=== PATIENT | female | born 1955 | race Caucasian/White ===

== ENCOUNTER 2020-07-18 16:27 | Outpatient (CLI) | payer OTHER, SELFPAY ==
--- NOTE | ~2020-07-18 | MM_ITS ---
EXAMINATION: MM screening [facility] HISTORY: Screening TECHNIQUE: Craniocaudal and mediolateral oblique 3-D tomosynthesis images were obtained and synthetic 2-D images were generated. CAD analysis was submitted and interpreted. COMPARISON: Comparison to multiple prior studies sequentially, with oldest reviewed study dated 08/16. BREAST PARENCHYMAL COMPOSITION: There are scattered areas of fibroglandular density. FINDINGS: There is no evidence of suspicious mass, calcification, or architectural distortion to sugg est malignancy in either breast. There has been no suspicious interval change. IMPRESSION: 1. No mammographic evidence of malignancy. 2. Recommend routine screening mammography in one year. BI-RADS Category 1: Negative Reviewed, dictated and finalized at location A.
== END 2020-07-18 16:28 | disposition home or self-care (01) ==
PROVIDERS: PCP Nurse Practitioner Adult Health; Visit Provider Nurse Practitioner Obstetrics & Gynecology
DX: Z12.31 Encounter for screening mammogram for malignant neoplasm of breast (principal)
CPT/HCPCS: 77063; 77067

== ENCOUNTER → 2021-12-06 13:54 | Outpatient (CLI) | payer MEDICARE, SELFPAY ==
--- NOTE | ~2021-12-06 | MM_ITS ---
EXAMINATION: MM screening [facility] HISTORY: Screening mammogram TECHNIQUE: Craniocaudal and mediolateral oblique 3-D tomosynthesis images were obtained and synthetic 2-D images were generated. CAD analysis was submitted and interpreted. COMPARISON: 07/18/2020, 01/25/2019, 07/30/2017 BREAST PARENCHYMAL COMPOSITION: The breasts are heterogeneously dense, which may obscure small masses . FINDINGS: There is no suspicious mass, calcification, or architectural distortion to suggest malignan cy in either breast. There has been no suspicious interval change. IMPRESSION: 1. No mammographic evidence of malignancy. 2. Recommend routine screening mammography in one year. BI-RADS Category 0: Incomplete: Needs additional imaging evaluation. Reviewed, dictated and finalized at location A.
--- NOTE | ~2021-12-06 | DEXA_ITS ---
Bone Density Report Name: DAPHNE DEAN Age: 66 Sex: Female Ethnicity: White Date of : 1955 Indication: postmenopausal; screening for osteoporosis; Referring Provider: BRYN, JOSELINE Study: Bone densitometry was performed. Exam Date: December 06, 2021 Accession number: [id number] Bone Density: Region BMD T-score Z-score Classification AP Spine (L1-L4) 0.888 -1.4 0.4 Osteopenia Femoral Neck (Left) 0.614 -2.1 -0.6 Osteopenia Total Hip (Left) 0.757 -1.5 -0.3 Osteopenia Femoral Neck (Right) 0.602 -2.2 -0.7 Osteopenia Total Hip (Right) 0.726 -1.8 -0.5 Osteopenia Total Hip Mean 0.742 -1.7 -0.4 Osteopenia World Health Organization criteria for BMD impression classify patients as: Normal (T-score at or above -1.0), Osteopenia (T-score between -1.0 and -2.5), or Osteoporosis (T-score at or below -2.5). 10-year Fracture Risk(1): Major Osteoporotic Fracture 11% Hip Fracture 1.9% Reported Risk Factors: [place] (), Neck BMD=0.602, BMI=23.6 (1) FRAX(R) Version 3.08. Fracture probability calculated for an untreated patient. Fracture probability may be lower if the patient has received treatment. Previous Exams: Region Exam Age BMD T-score BMD Change BMD Change Date g/cm2 vs Baseline vs Previous AP Spine(L1-L4) 12/06/2021 66 0.888 -1.4 -0.032* -0.048* 06/20/2010 55 0.936 -1.0 0.016 0.016 03/16/2008 52 0.920 -1.2 Total Hip(Left) 12/06/2021 66 0.757 -1.5 -0.089* -0.096* 06/20/2010 55 0.853 -0.7 0.007 0.007 03/16/2008 52 0.846 -0.8 Total Hip(Right) 12/06/2021 66 0.726 -1.8 -0.138* -0.107* 06/20/2010 55 0.833 -0.9 -0.031* -0.031* 03/16/2008 52 0.864 -0.6 *Denotes significance at 95% confidence level, LSC for AP Spine = 0.022 g/cm2, LSC for Total Hip = 0.027 g/cm2 Clinical Information Provided by Patient: Has used the following medications: Vitamin D, Calcium, MTV Patient maximum height was 63.0 Menopause Age: 47 No regular weight bearing exercise Does not regularly consume dairy products Drinks caffeinated beverages Onset of menses at age 14 Number of children 2 Impression: The patient has low bone mass, based on the Right Femoral Neck T-score. The patient has an estimated ten-year risk of hip fracture of 1.9% and an estimated ten-year risk of major fracture of 11%, based on the WHO FRAX alg
== END ==
PROVIDERS: PCP Nurse Practitioner Adult Health; Visit Provider Nurse Practitioner Adult Health
DX: Z12.31 Encounter for screening mammogram for malignant neoplasm of breast (principal); Z78.0 Asymptomatic menopausal state; M85.88 Other specified disorders of bone density and structure, other site; M85.851 Other specified disorders of bone density and structure, right thigh; M85.852 Other specified disorders of bone density and structure, left thigh
CPT/HCPCS: 77063; 77067; 77080

== ENCOUNTER 2021-12-11 11:45 | Emergency (ER) | payer MEDICARE, SELFPAY ==
[2021-12-11] VITALS (9 sets, daily range): BP systolic 122–150; BP diastolic 73–95; PULSE 78–100; RESP 14–20; TEMP 36.9; O2SAT 97–100
--- NOTE | ~2021-12-11 | XR_ITS ---
EXAMINATION: XR chest 2V DATE: 12/11/2021 12:19 INDICATION: Chest pain and tachycardia TECHNIQUE: PA and lateral views of the chest are obtained. COMPARISON: 06/29/2013 FINDINGS: The lungs are free of acute opacities. No pleural effusion or pneumothorax. The cardiomedia stinal silhouette is normal. There is mild thoracic spondylosis. IMPRESSION: 1. No acute cardiopulmonary abnormality. Reviewed, dictated and finalized at location B.
--- NOTE | 2021-12-11 11:47 | ECG_ITS ---
Measurements Intervals [place] Rate: 90 P: 82 CA: 156 QRS: 75 QRSD: 105 T: 96 QT: 385 QTc: 472 Interpretive Statements SINUS RHYTHM DELAYED PRECORDIAL R/S TRANSITION LOW QRS VOLTAGE- DIFFUSE LEADS BORDERLINE ST-T WAVE ABNORMALITY- HIGH LATERAL LEADS BORDERLINE ECG NO PREVIOUS ECG AVAILABLE FOR COMPARISON Electronically Signed On 12-11-2021 12:34:42 CDT by Tal Alicea D.O.
[2021-12-11 12:14] LABS: Basophils Absolute Auto 0.1 K/mm3 (0.0-0.1); Basophils Percent Auto 1.1 % (0.2-1.2); Eosinophils Percent Auto 0.5 % (0-4.4); Hematocrit 44.1 % (37.0-47.0); Immature Granulocyte Absolute 0.02 K/mm3 (0.00-0.031); Immature Granulocyte Percent A 0.3 % (0-0.5); Lymphocytes Absolute Auto 1.55 K/mm3 (0.9-3.2); Lymphocytes Percent Auto 23.3 % (18.3-44.2); Mean Corpuscular HGB Conc 31.7 g/dl (32-36); Mean Corpuscular Hemoglobin 30.5 pg (26-34); Mean Corpuscular Volume 96.1 fl (80-100); Mean Platelet Volume 9.1 fl (7.4-10.4); Monocytes Absolute Auto 0.5 K/mm3 (0.1-0.6); Monocytes Percent Auto 6.9 % (2.6-8.5); Neutrophils Absolute Auto 4.5 K/mm3 (1.3-6.7); Neutrophils Percent Auto 67.9 % (45.5-73.1); Platelet Count Result 511 k/mm3 (150-375); Red Blood Count 4.59 M/mm3 (4.2-5.4); Red Cell Distribution Width 13.2 % (11.5-14.5); White Blood Count 6.7 K/mm3 (4.5-10.0)
[2021-12-11 12:26] LABS: Alanine Aminotransferase 20 U/L (6-35); Albumin Level 4.8 g/dL (3.5-5.1); Alkaline Phosphatase 77 U/L (38-126); Anion Gap 17 mmol/L (8-16); Aspartate Amino Transferase 35 U/L (14-36); Bilirubin,Total 0.5 mg/dL (0.2-1.3); Blood Urea Nitrogen 11 mg/dL (7-17); Calcium 9.9 mg/dL (8.4-10.2); Carbon Dioxide 27 mmol/L (22-30); Chloride 97 mmol/L (98-107); Estimated CRCL calculation 57 ml/min; Estimated Glomerular Filt Rate > 60; Glucose 102 mg/dL (65-110); Lipase 136 U/L (23-300); Potassium 4.2 mmol/L (3.4-5.0); Sodium 141 mmol/L (137-145)
[2021-12-11 12:28] LABS: Partial Thromboplastin Time 25.5 SECONDS (22.3-36.8); Prothrombin Time 12.5 Seconds (11.1-14.7)
[2021-12-11 12:36] LABS: Troponin I < 0.012 ng/mL (0.000-0.034)
--- NOTE | 2021-12-11 14:25 | ED.CHESTPAIN ---
HPI - Chest Pain General Chief Complaint: Chest Pain Stated Complaint: chest pain Time Seen by Provider: 12/11/21 14:07 Source: patient Mode of arrival: ambulatory Limitations: no limitations History of Present Illness HPI narrative: 66 years old white female presented to the ED with intermittent fluttering retrosternal and in the throat started few days ago, was seen by her family physician office at that time, had EKG and chest x-ray and was told that her chest x-ray showing that she have emphysema, over the last 4 days patient been feeling pain in her lungs and very anxious unable to sleep, shaking, jittery, and feeling sick. 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 Patient does not take medicine at home, healthy otherwise, does not smoke or drink or uses drugs, no family history of coronary artery disease. Related Data Home Medications Medication Instructions Recorded Confirmed spironolactone 100 mg tablet 100 mg PO DAILY 02/13/21 Allergies Allergy/AdvReac Type Severity Reaction Status Date / Time Penicillins Allergy Unknown unknown Verified 02/13/21 14:22 PROCHLORPERAZINE EDISYLATE Allergy Unknown unknown Uncoded 02/13/21 14:22 PROCHLORPERAZINE MALEATE Allergy Unknown Unknown Uncoded 02/13/21 14:22 Review of Systems Review of Systems: All systems reviewed & are unremarkable except as noted in HPI and below PMFSH Family History Family History Mother Hypertension Heart disease Thyroid disorder Grandparent Diabetes mellitus Social History Social History Smoking status: Never smoker Alcohol intake: never Substance use: never Exam Narrative: General appearance: Well-developed, well-nourished, looks anxious Skin: Normal color Head: Normocephalic, nontraumatic Eyes: Clear conjunctiva ENT: Oropharynx normal, ears normal, nose normal Neck: Supple, nontender Chest and respiratory: Airway patent, no respiratory distress, no accessory muscle use Heart: Regular rate/rhythm Abdomen: Soft, nontender, no organomegaly, quiet bowel sounds Vascular: Normal peripheral pulses, normal capillary refill. Musculoskeletal: Normal range of motion, nontender back Neurologic: Alert and oriented ?3, [employer] is normal as tested, no gross motor deficit Course Course Emergency Course: Stress, and anxiety are my concern. Patient is already have history of anxiety and distress because of her and because of her business, and was told by her family physician office that her chest x-ray showing emphysema which make her more anxious and more stressed. I do show her the report of the chest x-ray today and was very happy about it and she told me that I met her day. Because did not show any emphysema. Work-up today did not show any significant finding to explain her symptoms. My plan to discharge patient home on clonazepam for the next 7 days and to follow-up with her family physician as needed. Vital Signs Vital signs: Vital Signs Temperature 36.9 C 12/11/21 11:49 Pulse Rate 100 12/11/21 11:49 Respiratory Rate 18 12/11/21 11:49 Blood Pressure 150/95 H 12/11/21 11:49 Pulse Oximetry 100 12/11/21 11:49 Oxygen Delivery Room Air 12/11/21 11:49 Temperature 36.9 C 12/11/21 11:49 Pulse Rate 89 12/11/21 14:11 Respiratory Rate 16 12/11/21 14:11 Blood Pressure 132/79 12/11/21 14:11 Pulse Oximetry 100 12/11/21 14:11 Oxygen Delivery Room Air 12/11/21 14:11
[2021-12-11 15:20] LABS: Troponin I < 0.012 ng/mL (0.000-0.034)
== END 2021-12-11 16:45 | disposition home or self-care (01) ==
PROVIDERS: Emergency Medicine; Emergency Provider Emergency Medicine; PCP Nurse Practitioner Adult Health
DX: R00.2 Palpitations (principal); R07.89 Other chest pain; F41.9 Anxiety disorder, unspecified
CPT/HCPCS: 36415; 71046; 80053; 83690; 84443; 84484; 85025; 85610; 85730; 93005; 99284

== ENCOUNTER 2022-01-09 00:08 | Day surgery (SDC) | payer MEDICARE, SELFPAY ==
[2021-12-24 13:43] VITALS: BMI 23.0
--- NOTE | 2022-01-08 17:45 | PM.HPGS ---
History of Present Illness History of Present Illness Consent: Risks, benefits, and alternatives have been discussed and questions answered. Patient agrees to proceed with procedure. Chief complaint: neoplasm screening Narrative: Amanda Le is a 66 year old female referred for colon cancer screening. She had a polyp removed 6 years ago Review of Systems Review of Systems: All systems reviewed & are unremarkable except as noted in HPI and below PMFSH Past Medical History Medical History (Updated 01/09/22 @ 09:26 by Angus Clinton DO) Anxiety Family History Family History Mother Hypertension Heart disease Thyroid disorder Grandparent Diabetes mellitus Social History Social History Smoking status: Never smoker Alcohol intake: never Substance use: never Substance use type: does not use Living arrangements: with family Additional living arrangements comments: spouse is still recovering from Covid in September 2021, is in rehab facility Spiritual care concerns: No Meds Home Medications and Allergies Home Medications Medication Instructions Recorded Confirmed Type spironolactone 100 mg tablet 100 mg PO DAILY 02/13/21 12/24/21 History clonazepam 0.25 mg disintegrating 0.25 mg PO BID #14 tabs 12/11/21 12/24/21 Rx tablet aspirin 81 mg capsule 81 mg PO DAILY 12/24/21 12/24/21 History esomeprazole magnesium 20 mg 20 mg PO DAILY 12/24/21 12/24/21 History capsule,delayed release (Nexium) minocycline 100 mg capsule 100 mg PO DAILY 12/24/21 12/24/21 History Allergies Allergy/AdvReac Type Severity Reaction Status Date / Time Penicillins Allergy Unknown unknown Verified 01/09/22 09:23 PROCHLORPERAZINE EDISYLATE Allergy Unknown unknown Uncoded 01/09/22 09:23 PROCHLORPERAZINE MALEATE Allergy Unknown Unknown Uncoded 01/09/22 09:23 Exam Const: General: alert Orientation/consciousness: patient oriented x3 Resp: Auscultation: clear to auscultation bilaterally Cardio: Rhythm: regular rhythm GI: GI Palp: Yes Soft to palpation and No Tenderness to palpation present (GI) Neuro: General: patient oriented x3 Assessment and Plan Assessment and plan (1) Colon cancer screening: Code(s): Z12.11 - Encounter for screening for malignant neoplasm of colon Status: Acute Assessment and Plan: Colonoscopy with possible biopsy or polypectomy or cautery or injection of substances.
--- NOTE | 2022-01-09 09:21 | WPDANESEPPF ---
Anes - Initial Pre Proc Eval Procedure: Operation Date: 01/09/22 10:45 Proposed Procedures p Screening Colonoscopy - Palomo Woods MD Date/Time: 01/09/22 09:21 Surgeon: Palomo Woods MD Pre Op Diagnosis: neoplasm screening Patient Data Age: 66 Gender: F Height: 1.6 m Weight: 59 kg Allergies Allergy/AdvReac Type Severity Reaction Status Date / Time Penicillins Allergy Unknown unknown Verified 01/09/22 09:23 PROCHLORPERAZINE EDISYLATE Allergy Unknown unknown Uncoded 01/09/22 09:23 PROCHLORPERAZINE MALEATE Allergy Unknown Unknown Uncoded 01/09/22 09:23 Home Medications Medication Instructions Recorded Confirmed Type spironolactone 100 mg tablet 100 mg PO DAILY 02/13/21 12/24/21 History clonazepam 0.25 mg disintegrating 0.25 mg PO BID #14 tabs 12/11/21 12/24/21 Rx tablet aspirin 81 mg capsule 81 mg PO DAILY 12/24/21 12/24/21 History esomeprazole magnesium 20 mg 20 mg PO DAILY 12/24/21 12/24/21 History capsule,delayed release (Nexium) minocycline 100 mg capsule 100 mg PO DAILY 12/24/21 12/24/21 History Patient hx anesthesia problems: none Family hx anesthesia problems: none Results Review: All pre-operative results and documents have been reviewed as part of the pre-operative evaluation. [facility] Past Medical History Medical History (Updated 01/09/22 @ 09:26 by Angus Clinton DO) Anxiety Family History Family History Mother Hypertension Heart disease Thyroid disorder Grandparent Diabetes mellitus Social History Social History Smoking status: Never smoker Alcohol intake: never Substance use: never Substance use type: does not use Living arrangements: with family Additional living arrangements comments: spouse is still recovering from Covid in September 2021, is in rehab facility Spiritual care concerns: No Anes - Eval Final PreProcedure Day of Procedure 01/09/22 09:21 Patient weight: normal Heart: regular rate and rhythm Lungs: clear to auscultation and normal air movement Airway: Mallampati scale class II Neurological: alert and oriented Last oral intake: >/= 8 hours ASA classification: II Emergent: no Anesthetic plan: proceed Anesthesia type and monitoring: general GIVS and standard monitoring Results Review: All pre-operative results and documents have been reviewed as part of the pre-operative evaluation. Informed Consent: The patient's anesthetic plan and its attendant risks and benefits were discussed with the patient/family/POA. Questions were solicited and answers provided to the satisfaction of the patient/family/POA.
[2022-01-09] MEDS: LACTATED RINGERS 1,000 ML 150 ML IV CONT (09:36)
[2022-01-09] MEDS: SIMETHICONE ORAL SUSPENSION 20 MG/0.3 ML 30 ML BOTTLE 0.6 ML IRRIGATION (10:31)
[2022-01-09 10:40] VITALS: BP 117/61; PULSE 72; RESP 17; O2SAT 100
[2022-01-09 10:50] VITALS: BP 116/70; PULSE 69; RESP 19; O2SAT 100
[2022-01-09 11:00] VITALS: BP 107/68; PULSE 72; RESP 16; O2SAT 100
== END 2022-01-09 11:19 | disposition home or self-care (01) ==
PROVIDERS: PCP Nurse Practitioner Adult Health; Visit Provider Internal Medicine Gastroenterology
PROC: 0DJD8ZZ Inspection of Lower Intestinal Tract, Via Natural or Artificial Opening Endoscopic (ICD-10-PCS; CPT 45378; principal; 2022-01-09 10:45)
DX: Z12.11 Encounter for screening for malignant neoplasm of colon (principal); K62.1 Rectal polyp; K57.30 Diverticulosis of large intestine without perforation or abscess without bleeding; Z79.82 Long term (current) use of aspirin; F41.9 Anxiety disorder, unspecified
CPT/HCPCS: 45380; 88305; J2704; J7120

== ENCOUNTER 2022-02-05 07:19 | Outpatient (CLI) | payer MEDICARE, SELFPAY ==
--- NOTE | ~2022-02-05 | NM_ITS ---
EXAMINATION: NM hepatobiliary wo pharm DATE: 02/05/2022 09:42 INDICATION: Epigastric abdominal pain. Atypical chest pain. COMPARISON: CT abdomen and pelvis 02/05/2022 TECHNIQUE: 5.1 mCi Tc-99m mebrofenin (Choletec) was administered intravenously. Scintigraphic images of the abdomen were obtained for one hour. Then, the patient drank 8 oz Ensure, and imaging was cont inued for 60 minutes. FINDINGS: There is normal clearance of radiotracer from the blood pool. There is homogeneous tracer u ptake by the liver. Activity progresses to the bowel and gallbladder. Gallbladder ejection fraction (GBEF) was 65%. Note that with this technique, normal GBEF >= 33%. IMPRESSION: 1. Normal hepatobiliary scintigraphy. Reviewed, dictated and finalized at location A.
--- NOTE | ~2022-02-05 | CT_ITS ---
EXAMINATION: CT abdomen pelvis w con DATE: 02/05/2022 09:49 INDICATION: Right lower quadrant tenderness, possible lump. Epigastric abdominal pain. Right and left -sided abdominal pain today. TECHNIQUE: Computed tomography (CT) of the abdomen and pelvis was performed with 100 CC Omnipaque 350 intravenous contrast. Automated exposure control and iterative reconstruction technique were employe d. Exam dose: 288.22 mGy-cm total exam DLP. COMPARISON: June 29, 2013 gallbladder ultrasound, reported normal 02/05/2022 radionuclide hepatobiliary scan FINDINGS: The bases are clear. Heart size is within normal limits. No pericardial or pleural effusion . The liver, gallbladder, bile ducts, spleen, pancreas, pancreatic duct, and adrenal glands and kidneys appear normal. Normal caliber of the abdominal aorta. No intraperitoneal or retroperitoneal or pelvic mass lesion or adenopathy or ascites. Retroverted uterus. The urinary bladder is unremarkable. No adnexal mass lesion. Diverticulosis of the left colon; no CT evidence of diverticulitis. There is a prominent amount of fe fay material particularly in the transverse and right colon. No bowel obstruction, bowel wall thicken ing, pneumatosis or intraperitoneal free air. Moderate to moderately severe degenerative disc disease at L4-5 and L5-S1. No suspicious osteolytic o r osteoblastic lesions are noted. IMPRESSION: Diverticulosis of the colon; no evidence of diverticulitis Retroverted uterus Reviewed, dictated and finalized at Location A. Reviewed, dictated and finalized at location A.
[2022-02-05 08:45] LABS: Estimated Glomerular Filt Rate > 60
== END 2022-02-05 07:20 | disposition home or self-care (01) ==
PROVIDERS: PCP Nurse Practitioner Adult Health; Visit Provider Nurse Practitioner
DX: R10.813 Right lower quadrant abdominal tenderness (principal); R07.89 Other chest pain; R10.13 Epigastric pain; K57.90 Diverticulosis of intestine, part unspecified, without perforation or abscess without bleeding; N85.4 Malposition of uterus
CPT/HCPCS: 74177; 78226; A9537; Q9967

== ENCOUNTER 2022-02-08 00:49 | Day surgery (SDC) | payer MEDICARE, SELFPAY ==
[2022-01-30 14:24] VITALS: BMI 23.1
--- NOTE | 2022-02-08 11:24 | P.HP_ITS ---
History of Present Illness History of Present Illness Consent: Risks, benefits, and alternatives have been discussed and questions answered. Patient agrees to proceed with procedure. Chief complaint: epigastric pain Narrative: Amanda Le is a 66 year old female Who ?over the last 6 months began having epigastric abdominal discomfort that was on and off but she described as a ?ache?.? She took Nexium with somewhat relief.? This has continued and has be en progressively been worsening with now radiation into her bilateral lower ribs.? This is not worsened with eating or improved with bowel habits.? She had reported to her PCP that she had some chest discomfort with epigastric pain with radiation into her chest along with? ?fluttering in her chest that resolved spontaneously. She was seen in the emergency room and cardiac test were negative. Her symptoms always worsened when she is under stress.? Review of Systems Review of Systems: All systems reviewed & are unremarkable except as noted in HPI and below PMFSH Past Medical History Medical History Anxiety Atypical chest pain Epigastric abdominal pain RLQ abdominal tenderness Family History Family History Mother Hypertension Heart disease Thyroid disorder Grandparent Diabetes mellitus Social History Social History Smoking status: Never smoker Alcohol intake: current Alcohol use details: maybe once a week socially Substance use: never Substance use type: does not use Living arrangements: alone Additional living arrangements comments: spouse is still recovering from Covid in September 2021, is in rehab facility Spiritual care concerns: No Meds Home Medications and Allergies Home Medications Medication Instructions Recorded Confirmed Type spironolactone 100 mg tablet 100 mg PO DAILY 02/13/21 01/30/22 History aspirin 81 mg capsule 81 mg PO DAILY 12/24/21 01/30/22 History minocycline 100 mg capsule 100 mg PO DAILY 12/24/21 01/30/22 History esomeprazole magnesium 40 mg 40 mg PO BID #60 caps 02/07/22 02/08/22 Rx capsule,delayed release (Nexium) Allergies Allergy/AdvReac Type Severity Reaction Status Date / Time Penicillins Allergy Intermediate Hives Verified 02/08/22 11:43 PROCHLORPERAZINE EDISYLATE Allergy Intermediate Muscle Uncoded 02/08/22 11:43 Spasms PROCHLORPERAZINE MALEATE Allergy Intermediate Muscle Uncoded 02/08/22 11:43 Spasms Exam Const: General: alert Orientation/consciousness: patient oriented x3 Resp: Auscultation: clear to auscultation bilaterally Cardio: Rhythm: regular rhythm GI: GI Palp: Yes Soft to palpation and No Tenderness to palpation present (GI) Neuro: General: patient oriented x3 Assessment and Plan Assessment and plan (1) Epigastric abdominal pain: Code(s): R10.13 - Epigastric pain Status: Acute Assessment and Plan: EGD with possible biopsy or dilatation or cautery.
[2022-02-08 11:47] VITALS: BP 124/78; PULSE 89; RESP 18; TEMP 36.6; O2SAT 100
[2022-02-08] MEDS: LACTATED RINGERS 1,000 ML 150 ML IV CONT (11:58)
--- NOTE | 2022-02-08 12:05 | P.PNAN_ITS ---
Anes - Initial Pre Proc Eval Procedure: Operation Date: 02/08/22 13:00 Proposed Procedures p Esophagogastroduodenoscopy EGD - Palomo Woods MD Date/Time: 02/08/22 12:05 Surgeon: Palomo Woods MD Pre Op Diagnosis: epigastric pain Patient Data Age: 66 Gender: F Height: 1.6 m Weight: 59 kg Last Vital Signs Temp 97.9 F 02/08/22 11:47 Pulse 89 02/08/22 11:47 Resp 18 02/08/22 11:47 BP 124/78 02/08/22 11:47 Pulse Ox 100 02/08/22 11:47 O2 Del Method Room Air 02/08/22 11:47 Allergies Allergy/AdvReac Type Severity Reaction Status Date / Time Penicillins Allergy Intermediate Hives Verified 02/08/22 11:43 PROCHLORPERAZINE EDISYLATE Allergy Intermediate Muscle Uncoded 02/08/22 11:43 Spasms PROCHLORPERAZINE MALEATE Allergy Intermediate Muscle Uncoded 02/08/22 11:43 Spasms Home Medications Medication Instructions Recorded Confirmed Type spironolactone 100 mg tablet 100 mg PO DAILY 02/13/21 01/30/22 History aspirin 81 mg capsule 81 mg PO DAILY 12/24/21 01/30/22 History minocycline 100 mg capsule 100 mg PO DAILY 12/24/21 01/30/22 History esomeprazole magnesium 40 mg 40 mg PO BID #60 caps 02/07/22 02/08/22 Rx capsule,delayed release (Nexium) Patient hx anesthesia problems: none Family hx anesthesia problems: none Results Review: All pre-operative results and documents have been reviewed as part of the pre- operative evaluation. [facility] Past Medical History Medical History (Updated 01/17/22 @ 10:09 by Marta Terrazas APRN) Anxiety Atypical chest pain Epigastric abdominal pain RLQ abdominal tenderness Family History Family History Mother Hypertension Heart disease Thyroid disorder Grandparent Diabetes mellitus Social History Social History Smoking status: Never smoker Alcohol intake: current Alcohol use details: maybe once a week socially Substance use: never Substance use type: does not use Living arrangements: alone Additional living arrangements comments: spouse is still recovering from Covid in September 2021, is in rehab facility Spiritual care concerns: No Anes - Eval Final PreProcedure Day of Procedure 02/08/22 12:05 Patient weight: normal Heart: regular rate and rhythm Lungs: clear to auscultation Airway: Mallampati scale class II Neurological: alert and oriented Last oral intake: >/= 8 hours ASA classification: II Emergent: no Anesthetic plan: proceed Anesthesia type and monitoring: general GIVS and standard monitoring Results Review: All pre-operative results and documents have been reviewed as part of the pre-operative evaluation. Informed Consent: The patient's anesthetic plan and its attendant risks and benefits were discussed with the patient/family/POA. Questions were solicited and answers provided to the satisfaction of the patient/family/POA.
[2022-02-08 12:48] VITALS: BP 114/74; PULSE 78; RESP 21; O2SAT 100
[2022-02-08 12:58] VITALS: BP 133/77; PULSE 75; RESP 16; O2SAT 100
[2022-02-08 13:08] VITALS: BP 126/78; PULSE 66; RESP 19; O2SAT 100
== END 2022-02-08 13:12 | disposition home or self-care (01) ==
PROVIDERS: PCP Nurse Practitioner Adult Health; Visit Provider Internal Medicine Gastroenterology
PROC: 0DJ08ZZ Inspection of Upper Intestinal Tract, Via Natural or Artificial Opening Endoscopic (ICD-10-PCS; CPT 43235; principal; 2022-02-08 13:00)
DX: K21.9 Gastro-esophageal reflux disease without esophagitis (principal); Z79.82 Long term (current) use of aspirin
CPT/HCPCS: 43239; 87081; 88305; J2001; J2704; J7120

== ENCOUNTER 2022-07-20 13:55 | Emergency (ER) | payer MEDICARE, SELFPAY ==
--- NOTE | ~2022-07-20 | XR_ITS ---
EXAMINATION: XR foot LT min 3V DATE: 07/20/2022 14:11 INDICATION: Left foot pain TECHNIQUE: Dorsoplantar, lateral, and 2 oblique views of the left foot were obtained. COMPARISON: None. FINDINGS: Bone alignment is normal. There is no fracture. There is mild osteoarthritis of multiple in terphalangeal joints. The soft tissues are unremarkable. There is a posterior plantar calcaneal enthe sophyte. There is a screw in the distal tibia. IMPRESSION: 1. No acute osseous abnormality. Reviewed, dictated and finalized at location A.
[2022-07-20 14:04] VITALS: BP 115/71; PULSE 93; RESP 16; TEMP 37.1; O2SAT 99
--- NOTE | 2022-07-20 14:25 | ED.LOWEXIN ---
HPI - Extremity Injury (Lower) General Chief Complaint: Extremity Injury, Lower Stated Complaint: foot injury Time Seen by Provider: 07/20/22 14:25 Source: patient, RN notes reviewed and old records reviewed Mode of arrival: ambulatory Limitations: no limitations History of Present Illness HPI Narrative: 67 year old female presents to [facility] care with reports that she sprained her left foot 2 weeks ago and then last Friday she dropped a 18Oz can of full drink on the dorsal distal aspect of her left foot. Patient reports that she has some pain to the dorsal distal aspect of her left foot with mild puffiness noted, no redness or acute bruising noted. Patient is able to apply full weight to left foot with steady gait. David has been taking Tylenol for her symptoms. MD complaint: foot injury (left) Onset (ago): day(s) (3 days and 2 weeks ago left lateral ankle sprain) Type of Injury: blunt Severity scale (1-10): 4 Exacerbating factors: weight bearing Treatments prior to arrival: other (tylenol) Related Data Home Medications Medication Instructions Recorded Confirmed spironolactone 100 mg tablet 100 mg PO DAILY 02/13/21 07/20/22 aspirin 81 mg capsule 81 mg PO DAILY 12/24/21 07/20/22 minocycline 100 mg capsule 100 mg PO DAILY 12/24/21 07/20/22 Allergies Allergy/AdvReac Type Severity Reaction Status Date / Time Penicillins Allergy Intermediate Hives Verified 02/08/22 11:43 PROCHLORPERAZINE EDISYLATE Allergy Intermediate Muscle Uncoded 02/08/22 11:43 Spasms PROCHLORPERAZINE MALEATE Allergy Intermediate Muscle Uncoded 02/08/22 11:43 Spasms Review of Systems Review of Systems: CONSTITUTIONAL: Denies fever, chills, or sweats. EYES: Denies visual changes, redness, or discharge. ENT: Denies rhinorrhea, congestion, sore throat, or otalgia. CARDIOVASCULAR: Denies chest pain, palpitations, or edema. RESPIRATORY: Denies cough or dyspnea. GASTROINTESTINAL: Denies abdominal pain, nausea, vomiting, or diarrhea. GENITOURINARY: Denies dysuria or hematuria. SKIN: Denies rash or itching. MUSCULOSKELETAL: Denies back pain, positive for pain to distal dorsal left foot with minimall swelling noted, or myalgia. NEUROLOGIC: Denies headache, numbness, or weakness. PSYCHIATRIC: Denies anxiety or depression. All systems reviewed & are unremarkable except as noted in HPI and below PMFSH Past Medical History Medical History Anxiety Atypical chest pain Epigastric abdominal pain RLQ abdominal tenderness Family History Family History Mother Hypertension Heart disease Thyroid disorder Grandparent Diabetes mellitus Social History Social History Smoking status: Never smoker Alcohol intake: current Alcohol use details: maybe once a week socially Substance use: never Substance use type: does not use Living arrangements: alone Additional living arrangements comments: spouse is still recovering from Covid in September 2021, is in rehab facility Spiritual care concerns: No Comments At time of signature, agree with nursing past medical, surgical, social and family history. There is no relevant family history pertinent to the presenting complaint Exam Narrative: GENERAL: Well-appearing, well-nourished, and in no acute distress. HEAD: Normocephalic, atraumatic. EYES: PERRLA and EOMI. ENT: Nares clear, no rhinorrhea or epistaxis. Mucous membranes moist.TM's normal throat pink with no swelling NECK: Supple.no lymphadenopathy CHEST: Clear to auscultation. No respiratory distress.SAO2 99% on room air HEART: Regular rate and rhythm. No murmur heard. Normal peripheral pulses. ABDOMEN: Soft, nontender, nondistended, normal active bowel sounds. EXTREMITIES: Normal range of motion. No edema.Exception noted to pain to left distal foot with mild puffiness noted to distal jeanmarie
== END 2022-07-20 14:40 | disposition home or self-care (01) ==
PROVIDERS: Emergency Provider Registered Nurse
DX: S90.32XA Contusion of left foot, initial encounter (principal); W20.8XXA Other cause of strike by thrown, projected or falling object, initial encounter; Z79.82 Long term (current) use of aspirin
CPT/HCPCS: 73630; 99213; G0463

== ENCOUNTER 2022-11-14 10:58 | Emergency (ER) | payer MEDICARE, SELFPAY ==
--- NOTE | ~2022-11-14 | CT_ITS ---
EXAMINATION: CT abdomen pelvis wo con DATE: 11/14/2022 12:47 INDICATION: Left flank pain. TECHNIQUE: Computed tomography (CT) of the abdomen and pelvis was performed without intravenous contr ast. Automated exposure control and iterative reconstruction technique were employed. The dose-length product was 191.16 mGy-cm. COMPARISON: CT abdomen and pelvis 02/05/2022 FINDINGS: The visualized portions of the lung bases demonstrate minimal atelectasis. No pleural effus ion. The heart size is normal. No pericardial effusion. The liver, gallbladder, spleen, pancreas, adr enal glands, and kidneys are normal. There is no urolithiasis. There is diverticulosis of the colon w ithout evidence of diverticulitis. The appendix is normal. There are no pathologically enlarged lymph nodes. There is no free intraperitoneal fluid. There is severe lower lumbar spondylosis. IMPRESSION: 1. No urolithiasis. Reviewed, dictated and finalized at location A. IMPRESSION: 1. No urolithiasis.
[2022-11-14 11:20] VITALS: BP 109/63; PULSE 67; RESP 18; TEMP 36.9; O2SAT 100
[2022-11-14 12:21] LABS: Basophils Absolute Auto 0.1 K/mm3 (0.0-0.1); Basophils Percent Auto 0.8 % (0.2-1.2); Eosinophils Percent Auto 0.5 % (0-4.4); Hematocrit 44.7 % (37.0-47.0); Hemoglobin 14.2 g/dL (12.0-15.0); Immature Granulocyte Absolute 0.02 K/mm3 (0.00-0.031); Immature Granulocyte Percent A 0.3 % (0-0.5); Lymphocytes Absolute Auto 1.56 K/mm3 (0.9-3.2); Lymphocytes Percent Auto 21.2 % (18.3-44.2); Mean Corpuscular HGB Conc 31.8 g/dl (32-36); Mean Corpuscular Volume 97.6 fl (80-100); Mean Platelet Volume 8.9 fl (7.4-10.4); Monocytes Absolute Auto 0.6 K/mm3 (0.1-0.6); Monocytes Percent Auto 7.9 % (2.6-8.5); Neutrophils Absolute Auto 5.1 K/mm3 (1.3-6.7); Neutrophils Percent Auto 69.3 % (45.5-73.1); Platelet Count Result 511 k/mm3 (150-375); Red Blood Count 4.58 M/mm3 (4.2-5.4); Red Cell Distribution Width 13.2 % (11.5-14.5); White Blood Count 7.4 K/mm3 (4.5-10.0)
[2022-11-14 12:23] LABS: Appearance Urine Clear (Clear); Bilirubin Urine Negative (Negative); Blood Urine Negative (Negative); Color Urine Yellow (Yellow); Glucose Urine UA Negative (Negative); Ketones Urine Negative (Negative); Leukocyte Esterase Ur Negative LEU/UL (Negative); Nitrate Urine Negative (Negative); Protein Urine Negative (Negative); Specific Grav Ur 1.006 (1.001-1.035); Urobilinogen Urine 0.2 mg/dL (<2.0); pH Urine 6.5 (5.0-9.0)
[2022-11-14 12:30] LABS: Add Urine Microscopic? NO
[2022-11-14 12:35] LABS: Alanine Aminotransferase 27 U/L (6-35); Albumin Level 4.6 g/dL (3.5-5.1); Alkaline Phosphatase 53 U/L (38-126); Anion Gap 9 mmol/L (8-16); Aspartate Amino Transferase 38 U/L (14-36); Blood Urea Nitrogen 13 mg/dL (7-17); Carbon Dioxide 26 mmol/L (22-30); Chloride 96 mmol/L (98-107); Estimated CRCL calculation 55 ml/min; Estimated Glomerular Filt Rate > 60; Glucose 88 mg/dL (65-110); Lipase 169 U/L (23-300); Potassium 4.6 mmol/L (3.4-5.0); Sodium 131 mmol/L (137-145)
--- NOTE | 2022-11-14 12:39 | ED.FEMALEGU ---
HPI - Female Genitourinary General Chief complaint: Urogenital-Female Stated complaint: flank pain/from urgent care Time Seen by Provider: 11/14/22 11:43 Source: patient Mode of arrival: ambulatory Limitations: no limitations History of Present Illness HPI Narrative: Patient is a 67-year-old female who presents ED with report of left flank pain. Patient reports she was working last night and developed a slight twinge in her left flank/lower back. She states this felt similar to when she is developing a UTI. The pain occurred more frequently and more severely today. She went to a local urgent care and was told there was microscopic blood in her urine. She was then sent here for further evaluation. Patient denies any history of kidney stones. Denies any dysuria, visible hematuria, frequency/urgency, abdominal pain, nausea, vomiting, fevers. She has not tried anything for pain and does not want anything currently. Related Data Home Medications Medication Instructions Recorded Confirmed spironolactone 100 mg tablet 100 mg PO DAILY 02/13/21 11/05/22 aspirin 81 mg capsule 81 mg PO DAILY 12/24/21 11/05/22 Bacillus coagulans 10 billion cell cell PO 11/05/22 11/05/22 capsule,delayed release (Probiotic (B. coagulans)) ascorbic acid (vitamin C) 1,000 mg 1 g PO DAILY 11/05/22 11/05/22 capsule calcium carbonate 500 mg calcium 500 mg PO DAILY 11/05/22 11/05/22 (1,250 mg) chewable tablet (Calcium 500) cholecalciferol (vitamin D3) 125 125 mcg PO DAILY 11/05/22 11/05/22 mcg (5,000 unit) capsule lysine 500 mg tablet (L-Lysine) 500 mg PO DAILY 11/05/22 11/05/22 melatonin 10 mg capsule 10 mg PO QHS 11/05/22 11/05/22 metronidazole 0.75 % topical gel 1 applic topical BID 11/05/22 11/05/22 minocycline 50 mg capsule 50 mg PO DAILY 11/05/22 11/05/22 multivitamin with minerals-folic 1 tablet PO DAILY 11/05/22 11/05/22 acid 120 mcg chewable tablet (Women's Multivitamin Gummies) vitamin E (dl, acetate) 180 mg 180 mg PO DAILY 11/05/22 11/05/22 (400 unit) capsule zinc acetate 50 mg (zinc) capsule 50 mg PO DAILY 11/05/22 11/05/22 Allergies Allergy/AdvReac Type Severity Reaction Status Date / Time Penicillins Allergy Intermediate Hives Verified 02/08/22 11:43 PROCHLORPERAZINE EDISYLATE Allergy Intermediate Muscle Uncoded 02/08/22 11:43 Spasms PROCHLORPERAZINE MALEATE Allergy Intermediate Muscle Uncoded 02/08/22 11:43 Spasms Review of Systems Review of Systems: CONSTITUTIONAL: Denies fever, chills, or sweats. CARDIOVASCULAR: Denies chest pain. RESPIRATORY: Denies dyspnea. GASTROINTESTINAL: Denies abdominal pain, nausea, vomiting. GENITOURINARY: Denies dysuria or hematuria. MUSCULOSKELETAL: See HPI. NEUROLOGIC: Denies headache, numbness, or weakness. All systems reviewed & are unremarkable except as noted in HPI and below PMFSH Past Medical History Medical History Anxiety Atypical chest pain Epigastric abdominal pain RLQ abdominal tenderness Family History Family History (Updated 11/05/22 @ 13:16 by Aminta Messer MA) Mother Hypertension Heart disease Thyroid disorder Basal cell carcinoma Grandparent Diabetes mellitus Heart disease Social History Social History Smoking status: Never smoker Alcohol intake: current Alcohol use details: maybe once a week socially Substance use: never Substance use type: does not use Living arrangements: alone Additional living arrangements comments: spouse is still recovering from Covid in September 2021, is in rehab facility Spiritual care concerns: No Exam Narrative: GENERAL: Well appearing, thin, non-toxic, in no acute distress. HEAD: Normocephalic, atraumatic. NECK: Supple. No adenopathy, no masses. RESPIRATORY: Airway patent, respirations nonlabored. Clear to auscultation bilaterally, no rales, rhonchi, wheez
== END 2022-11-14 13:31 | disposition home or self-care (01) ==
PROVIDERS: Emergency Provider Physician Assistant; PCP Family Medicine
DX: R10.9 Unspecified abdominal pain (principal); Z79.82 Long term (current) use of aspirin
CPT/HCPCS: 36415; 74176; 80053; 81003; 83690; 85025; 99284

== ENCOUNTER 2023-05-29 13:06 | Outpatient (CLI) | payer OTHER, SELFPAY ==
--- NOTE | 2023-05-29 13:15 | ECG_ITS ---
Measurements Intervals [place] Rate: 82 P: 74 TX: 126 QRS: 102 QRSD: 106 T: 89 QT: 384 QTc: 450 Interpretive Statements SINUS RHYTHM LOW QRS VOLTAGE IN PRECORDIAL LEADS [QRS DEFLECTION < 1.0 mV IN CHEST LEADS] NONSPECIFIC ST & T-WAVE ABNORMALITY COMPARED TO ECG 12/11/2021 12:02:26 NO SIGNIFICANT CHANGES Electronically Signed On 05-29-2023 13:35:07 RN TRAINING by Kraig Ruelas M.D.
[2023-05-29 13:39] LABS: Hematocrit 46.6 % (37.0-47.0); Hemoglobin 14.9 g/dL (12.0-15.0)
== END 2023-05-29 13:07 | disposition home or self-care (01) ==
LOC: ANHSURGERY 13:11
PROVIDERS: Anesthesiology; PCP Family Medicine; Visit Provider Surgery Plastic and Reconstructive Surgery
DX: Z01.818 Encounter for other preprocedural examination (principal); L57.4 Cutis laxa senilis
CPT/HCPCS: 36415; 85014; 85018; 93005

== ENCOUNTER 2023-08-11 00:02 | Day surgery (SDC) | payer OTHER, SELFPAY ==
--- NOTE | 2023-05-22 13:14 | PC.NURSE ---
Report to the Outpatient Waiting Room, entrance under the green pavilion located off [facility], at time 0600 on date __06/03/23 . Planned Procedure Time: __729 . Time changes happen often and if your time is changed the preop area will call you the afternoon before. - You and your visitor will be asked to self-screen and do not enter if you have any COVID symptoms. - A mask is optional within the hospital at this time. Patients may have clear liquids (water, carbonated beverages, clear teas, apple juice) until 3 hours prior to surgery( 4:30 AM) with a maximum of 20 ounces. - No food from midnight until time of surgery - Infants may have breast milk until 4 hours before surgery, infant formula 6 hours prior to surgery. - Children will be allowed to drink immediately following surgery. If applicable, please bring a bottle or sippy cup to assist with drinking. Juice, water, soda, and popsicles are readily available. For infants on formula, please bring formula the day of surgery. Pacifiers are allowed. Take the following medications with a SIP of water the morning of surgery: __NONE DO NOT STOP ANY OF YOUR OTHER PRESCRIPTION MEDICATIONS PRIOR TO SURGERY ?EXCEPT THE FOLLOWING Medications to discontinue per physician ___ALL VITAMINS AND SUPPLEMENTS 3 DAYS PRE OP .LAST DOSE 05/30/23 PT STATES LAST DOSE ASPIRIN _WAS 05/20/23 Please no make-up, nail faroese, hairspray, perfume, deodorant, or body powder the day of surgery. No jewelry (including any body piercings) or valuables the day of surgery, leave them at home. Please take a shower or bath the night before, or the morning of, surgery with an antibacterial soap. Wear comfortable, loose fitting clothing. Children are encouraged to wear pajamas. - Jewelry must be removed prior to entering the operating room. Rings and piercings that are not removed may be cut off. - The hospital will not accept responsibility for valuables. - Please leave all valuables, including medications, at home the day of surgery. If you are going home after surgery, a licensed straddle bug driver must drive you home. - NO public transportation without another adult if you receive anesthesia. - We recommend that an adult stay with you for 24 hours following discharge. - We also recommend that you do not drive, make important decision, drink alcoholic beverages, or take any drugs that were not prescribed by your health care provider for at least 24 hours after your discharge time. Follow any additional instructions given to you from your surgeon. If you or anyone in your household have experienced Covid symptoms in the past week, please notify your surgeon or the nurse liaison at the phone number below for possible testing. Telephone instructions given to _PATIENT and asked if any additional questions and then verbalized understanding. Patient advised to call surgeon office or pre surgery nurse liaison [phone] if any additional questions.
--- NOTE | 2023-08-06 11:37 | PC.NURSE ---
Report to the Outpatient Waiting Room, entrance under the green pavilion located off [facility], at time _0600 on date __08/11/23 . Planned Procedure Time: 729 . Time changes happen often and if your time is changed the preop area will call you the afternoon before. - You and your visitor will be asked to self-screen and do not enter if you have any COVID symptoms. - A mask is optional within the hospital at this time. Patients may have clear liquids (water, carbonated beverages, clear teas, apple juice) until 3 hours prior to surgery( 4:30 AM) with a maximum of 20 ounces. - No food from midnight until time of surgery - Infants may have breast milk until 4 hours before surgery, formula 6 hours prior to surgery. - Children will be allowed to drink immediately following surgery. If applicable, please bring a bottle or sippy cup to assist with drinking. Juice, water, soda, and popsicles are readily available. For infants on formula, please bring formula the day of surgery. Pacifiers are allowed. Take the following medications with a SIP of water the morning of surgery: ___NONE DO NOT STOP ANY OF YOUR OTHER PRESCRIPTION MEDICATIONS PRIOR TO SURGERY ?EXCEPT THE FOLLOWING Medications to discontinue per physician ___PT STATES LAST DOSE ALL VITAMINS ,SUPPLEMENTS AND ASPIRIN WAS 07/21/23 Please no make-up, nail togolese, hairspray, perfume, deodorant, or body powder the day of surgery. No jewelry (including any body piercings) or valuables the day of surgery, leave them at home. Please take a shower or bath the night before, or the morning of, surgery with an antibacterial soap. Wear comfortable, loose fitting clothing. Children are encouraged to wear pajamas. - Jewelry must be removed prior to entering the operating room. Rings and piercings that are not removed may be cut off. - The hospital will not accept responsibility for valuables. - Please leave all valuables, including medications, at home the day of surgery. If you are going home after surgery, a licensed furniture delivery driver must drive you home. - NO public transportation without another adult if you receive anesthesia. - We recommend that an adult stay with you for 24 hours following discharge. - We also recommend that you do not drive, make important decision, drink alcoholic beverages, or take any drugs that were not prescribed by your health care provider for at least 24 hours after your discharge time. Follow any additional instructions given to you from your surgeon. If you or anyone in your household have experienced Covid symptoms in the past week, please notify your surgeon or the nurse liaison at the phone number below for possible testing. Telephone instructions given to ___PATIENT and asked if any additional questions and then verbalized understanding. Patient advised to call surgeon office or pre surgery nurse liaison [phone] if any additional questions.
[2023-08-11] VITALS (13 sets, daily range): BP systolic 103–147; BP diastolic 49–85; PULSE 60–92; RESP 9–22; TEMP 36.3–36.9; O2SAT 100
[2023-08-11] MEDS: LACTATED RINGERS 1,000 ML 30 ML IV CONT ×2 (06:30→14:38)
[2023-08-11 06:50] LABS: Urine Cotinine NEGATIVE
--- NOTE | 2023-08-11 06:56 | WPDANESEPPF ---
Anes - Initial Pre Proc Eval Procedure: Operation Date: 08/11/23 07:30 Proposed Procedures p Face and Neck Lift with Facial Fat Grafting - Joe Napoles MD s Temporal Brow Lift - Joe Napoles MD s Upper and Lower Blepharoplasty - Joe Napoles MD Date/Time: 08/11/23 06:56 Surgeon: Joe Napoles MD Pre Op Diagnosis: Skin Laxity Patient Data Age: 68 Gender: F Height: 1.6 m Weight: 51.3 kg Allergies Allergy/AdvReac Type Severity Reaction Status Date / Time Penicillins Allergy Intermediate Hives Verified 08/06/23 11:30 PROCHLORPERAZINE EDISYLATE Allergy Intermediate Muscle Uncoded 08/06/23 11:30 Spasms Home Medications Medication Instructions Recorded Confirmed Type spironolactone 100 mg tablet 100 mg PO DAILY FACIAL BREAKOUTS 02/13/21 08/06/23 History aspirin 81 mg capsule 81 mg PO DAILY 12/24/21 08/06/23 History Bacillus coagulans 10 billion cell 10 cell PO DAILY 11/05/22 08/06/23 History capsule,delayed release (Probiotic (B. coagulans)) ascorbic acid (vitamin C) 1,000 mg 1 g PO DAILY 11/05/22 08/06/23 History capsule calcium carbonate (Calcium 500) 500 mg PO DAILY 11/05/22 08/06/23 History cholecalciferol (vitamin D3) 125 125 mcg PO DAILY 11/05/22 08/06/23 History mcg (5,000 unit) capsule lysine 500 mg tablet (L-Lysine) 500 mg PO DAILY 11/05/22 08/06/23 History melatonin 10 mg capsule 10 mg PO QHS 11/05/22 08/06/23 History metronidazole 0.75 % topical gel 1 applic topical BID 11/05/22 08/06/23 History vitamin E (dl, acetate) 180 mg 180 mg PO DAILY 11/05/22 08/06/23 History (400 unit) capsule zinc acetate 50 mg (zinc) capsule 50 mg PO DAILY 11/05/22 08/06/23 History multivitamin 1 tablet PO DAILY 05/22/23 08/06/23 History doxycycline hyclate 20 mg tablet 20 mg PO BID 08/06/23 08/06/23 History Laboratory Tests 05/06/24 06:33 Cotinine Negative Patient hx anesthesia problems: none Family hx anesthesia problems: none Results Review: All pre-operative results and documents have been reviewed as part of the pre-operative evaluation. FOR[facility]LY [facility] Past Medical History Medical History Anxiety Atypical chest pain Epigastric abdominal pain Internal nasal lesion RLQ abdominal tenderness Surgical History Surgical History (Updated 08/11/23 @ 06:56 by Roberto Rosario MD) H/O colonoscopy Family History Family History Mother Hypertension Heart disease Thyroid disorder Basal cell carcinoma Grandparent Diabetes mellitus Heart disease Social History Social History (Updated 08/11/23 @ 06:57 by Roberto Rosario MD) Social History: Caffeine-tea Smoking status: Never smoker Alcohol intake: current Drinks per week: 2 Alcohol use details: maybe once a week socially Substance use: never Substance use type: does not use Lack of Transportation: No Lack of Food: Never True Current Housing: I Have Housing Concerned About Future Housing: No Difficulty Paying Gas/Electric Bills: No Difficulty Paying for Meds: No Currently Unemployed: No Education: High School Diploma/GED Difficulty w/ Childcare or Family Care: No Living arrangements: with family Spiritual care concerns: No Anes - Eval Final PreProcedure Day of Procedure 08/11/23 06:56 Patient weight: normal Heart: regular rate and rhythm Lungs: clear to auscultation Airway: Mallampati scale class II Neurological: alert and oriented Last oral intake: >/= 8 hours ASA classification: II Emergent: no Anesthetic plan: proceed Anesthesia type and monitoring: general ETT and standard monitoring Results Review: All pre-operative results and documents have been reviewed as part of the pre-operative evaluation. Informed Consent: The patient's anesthetic plan and its attendant risks and benefits were discussed with the patient/family/POA. Questions we
[2023-08-11 06:59] LABS: Hematocrit 43.8 % (37.0-47.0); Hemoglobin 14.3 g/dL (12.0-15.0)
--- NOTE | 2023-08-11 07:07 | WPDHPUPDATE1 ---
History and Physical Update Update Date/Time: 08/11/23 07:07 History and Physical has been reviewed, including an updated exam of the patient. There are NO changes in the patient's condition. Risks, benefits, and alternatives have been discussed and questions answered. Patient agrees to proceed with procedure.
--- NOTE | 2023-08-11 07:27 | W.PM.PROC2 ---
Procedure Note - Detailed Date of Procedure 08/11/23 Pre-op Diagnosis Skin Laxity Post-op Diagnosis Same Procedure Performed 1. Facial rhytidectomy / cervicoplasty 2. Bilateral temporal brow lift 3. Bilateral upper eyelid blepharoplasty 4. Bilateral lower eyelid transconjunctival blepharoplasty 5. Facial fat grafting Surgeon Joe Napoles MD Anesthesia General Findings Fat grafting: Right lower lid 3 cc Right malar 3 cc Right zygoma 2 cc Right tenriism 3 cc Left lower lid 3 cc Left malar 3 cc Left zygoma 2 cc Left tenriism 1 cc Description of Procedure Preoperatively the risks, benefits, alternatives were discussed in extensive detail. I want her to be very realistic about the risks involved as well as expectations. Reviewed what we can and cannot accomplish. Realistic expectations of outcome. All questions were answered to satisfaction. Consent obtained. Marked in the preoperative holding along the tarsal crease. A pinch test was completed to darren the upper border and pinch test was utilized to verify no lagophthalmos after simulation of skin removal. This was while simulating the brow lift to ensure no lagophthalmos. Taken to the operating room placed supine on the operating room table. Anesthesia provided by anesthesiology. Surgical time-out was taken. Tube sutured into place to the first Incisor. Prepped and draped in standard sterile fashion. Adipose harvest She selected and abdomen harvest site. Stab incisions made and tumescent solution was infiltrated. Once adequate time for hemostasis suction lipectomy was completed with hand liposuction on 10cc syringes with a 3mm multihole fat grafting cannula. Lipoaspirate 100cc. Closed with 3-0 Nylon. Upper Blepharoplasty 1% lidocaine and 0.25% Marcaine with epinephrine was used anesthetize locally. A 15 blade was used to excise the skin flap. I thin incised the muscle and entered the nasal and middle compartments removing only what was clearly excess adiposity. I verified strict hemostasis throughout. This was closed with 5-0 fast absorbing plain gut suture. Lower Blepharoplasty 1% lidocaine and 0.25% Marcaine with epinephrine was used anesthetize locally with low volume of local to protect from distortion of structures. Eyes were irrigated with BSS. Tetracaine eyedrops placed. Corneal protectors also placed. Needle-tip cautery was used to incise just inferior to the tarsus and a transconjunctival lower lid blepharoplasty technique. The conjunctiva was retracted with a 5-0 nylon. I elevated in a preseptal fashion down to the level of the rim. At this point I entered the nasal, middle, and lateral compartments and removed only what was clearly excess adiposity. I verified strict hemostasis throughout. I verified that the inferior oblique was protected during this procedure. With gentle pressure on the globe I verified the contour the lower lids. Both lids proceeded in the same manner. Retraction suture and corneal protectors were removed. Copious irrigated again with BSS solution. Brow Lift 1% lidocaine and 0.25% Marcaine with epi to anesthetize locally. A 15 blade was used to make an temporal hairline. Dissection continued in a subcutaneous plane to the level of the orbital rim and laterally. This was mobilized and placed into position. The estimated tissue to remove was makred and trimed. This was closed with 5-0 Nylon. 4-0 Nylon hemostatic net utilized for the brow lift. Face / Neck Lift Local anesthesia was provided with a tumescent solution using lidocaine, epinephrine, and TXA. Once adequate time for effect a fifteen blade used to make a submental incision. Dissection was continued down identified platysma muscle. Elevated skin flaps with good adiposity of the deep surface throughout the neck just what was necessary centrally. I then proceeded sub platysmal and elevated bilateral. Her Platysma was very th
[2023-08-11] MEDS: ceFAZolin 2 GM/D5W 50 ML 2 GM/50 ML BAG IVPB ×2 (07:50→11:54)
[2023-08-11] MEDS: TRANEXAMIC ACID 1,000MG/ISO100 1,000 MG/100 ML BAG 200 MG IVPB (07:50)
[2023-08-11] MEDS: fentaNYL CITRATE INJ (*CRX) 100 MCG/2 ML VIAL 25 MCG IV PUSH ×4 (14:58→17:40)
[2023-08-11] MEDS: oxyCODONE HCL (*CRX) 5 MG TAB IR PO (16:08)
[2023-08-11] MEDS: BALANCED SALT SOLN OPHTH IRRIG 30 ML BTL EACH EYE ×2 (17:27)
[2023-08-11] MEDS: TETRACAINE HCL 0.5% OPHTH SOLN 4 ML BTL 1 DROP EACH EYE (17:33)
[2023-08-11] MEDS: ERYTHROMYCIN OPHTH OINTMENT 1 GM TUBE 1 APPLIC EACH EYE (18:15)
[2023-08-11] MEDS: ONDANSETRON HCL ODT 4 MG TABLET PO (18:28)
== END 2023-08-11 18:50 | disposition home or self-care (01) ==
PROVIDERS: Anesthesiology; PCP Family Medicine; Visit Provider Surgery Plastic and Reconstructive Surgery
PROC: (CPT 15824; principal; 2023-08-11 07:30)
PROC: (CPT 15824; 2023-08-11 07:30)
PROC: (CPT 15820; 2023-08-11 07:30)
DX: Z41.1 Encounter for cosmetic surgery (principal); L57.4 Cutis laxa senilis; H02.834 Dermatochalasis of left upper eyelid; H02.831 Dermatochalasis of right upper eyelid; F41.9 Anxiety disorder, unspecified; Z79.82 Long term (current) use of aspirin; Z79.891 Long term (current) use of opiate analgesic; Z85.828 Personal history of other malignant neoplasm of skin; Z84.0 Family history of diseases of the skin and subcutaneous tissue; Z82.49 Family history of ischemic heart disease and other diseases of the circulatory system
CPT/HCPCS: 15820; 15822; 15824; 15825; 15829; 15773; 36415; 80307; 85014; 85018; A9270; J0171; J0690; J1100; J1580; J2250; J2405; J2704; J3010; J7030; J7120; Q9968

== ENCOUNTER 2024-04-13 11:33 | Outpatient (CLI) | payer MEDICARE, SELFPAY ==
--- NOTE | ~2024-04-13 | XR_ITS ---
Clinical Indication: Cough PA and lateral views of the chest: Comparison: 12/11/2021 Findings: The lungs are clear, without evidence of focal consolidation or pleural effusion. Cardiome diastinal silhouette is within normal limits. Bones and soft tissues are unremarkable. Impression: Normal chest. Reviewed, dictated and finalized at location . PER MEAT Impression: Normal chest.
== END 2024-04-13 11:34 | disposition home or self-care (01) ==
LOC: GOSHIMG 11:34
PROVIDERS: PCP Nurse Practitioner; Visit Provider Nurse Practitioner
DX: R05.9 Cough, unspecified (principal)
CPT/HCPCS: 71046

== ENCOUNTER 2024-05-17 15:11 | Outpatient (CLI) | payer MEDICARE, SELFPAY ==
--- NOTE | ~2024-05-17 | MM_ITS ---
EXAMINATION: MM screening ashley BI w carlos HISTORY: Screening TECHNIQUE: Craniocaudal and mediolateral oblique 3-D tomosynthesis images were obtained and synthetic 2-D images were generated. CAD analysis was submitted and interpreted. COMPARISON: Comparison to multiple prior studies sequentially, with oldest reviewed study dated 08/16. BREAST PARENCHYMAL COMPOSITION: Dense: The breasts are heterogeneously dense, which may obscure small masses FINDINGS: There is no evidence of suspicious mass, calcification, or architectural distortion to sugg est malignancy in either breast. There has been no suspicious interval change. IMPRESSION: 1. No mammographic evidence of malignancy. 2. Recommend routine screening mammography in one year. BI-RADS Category 1: Negative Reviewed, dictated and finalized at location B. OM SHOP WORKER
--- OUTSIDE RECORDS SUMMARY | 2024-05-17 15:22 | XMS_ITS | Clinical Summary ---
Author Organization [facility] D Address [address] [place] [phone] Care Team Providers Care Medical Specialist Name Role Phone Jazmin Sahni NP Primary Care Provider [phone] Allergies Active Allergy Reactions Criticality Noted Date Comments Penicillins Hives Medium 01/03/2012 Medications aspirin 81 mg tablet Take 81 mg by mouth daily. Active Active Problems Problem Noted Date Diagnosed Date Other chest pain 03/04/2017 Assessment & Plan (03/05/2017 7:01 PM WHITEPRINTING MACHINE OPERATOR): Minimal risk factors for coronary artery disease, but the occasional exertional component of her chest discomfort is worrisome. This could represent walk through angina. I have recommended a stress echocardiogram for evaluation. Further recommendations pending results of stress echocardiogram. Surgical History Surgery Date Site/Laterality Comments COLONOSCOPY ORTHOPEDIC SURGERY left ankle Medical History Medical History Date Comments Anxiety IBS (irritable bowel syndrome) Family History Medical History Relation Name Comments Diabetes Maternal Grandmother Heart disease Maternal Grandmother Heart failure Mother Hypertension Mother Thyroid disease Mother Alzheimer's disease Paternal Grandfather Heart disease Paternal Grandfather Relation Name Status Comments Maternal Grandmother Mother Paternal Grandfather Social History Tobacco Use Types Packs/Day Years Used Date Smoking Tobacco: Never Smokeless Tobacco: Never Alcohol Use Standard Drinks/Week Comments Yes 0 (1 standard drink = 0.6 oz pur e alcohol) Comments Unknown Sex and Gender Information Value Date Recorded Sex Assigned at Not on file Legal Sex Female 12:45 AM WHITEPRINTING MACHINE OPERATOR Gender Identity Not on file Sexual Orientation Not on file Obstetrics History Last Filed Vital Signs Vital Sign Reading Time Taken Comments Blood Pressure 112/62 03/04/2017 11:27 AM WHITEPRINTING MACHINE OPERATOR Pulse 72 03/04/2017 11:27 AM WHITEPRINTING MACHINE OPERATOR Temperature - - Respiratory Rate - - Oxygen Saturation - - Inhaled Oxygen Concentration - - Weight 63 kg (139 lb) 03/04/2017 11:27 AM WHITEPRINTING MACHINE OPERATOR Height 160 cm (5' 3 ) 03/04/2017 11:27 AM WHITEPRINTING MACHINE OPERATOR Body Mass Index 24.62 03/04/2017 11:27 AM WHITEPRINTING MACHINE OPERATOR Plan of Treatment Not on file Care Teams Medical Specialist Relationship Specialty Start Date End Date Jazmin Sahni NP PCP - General Nurse Practitioner 02/05/17
--- OUTSIDE RECORDS SUMMARY | 2024-05-17 15:22 | XMS_ITS | Clinical Summary ---
Author Organization [facility] Address [address] [place] [address] Care Team Providers Care Winch Operator Name Role Phone Jazmin Sahni HAKAN-BARROW WORKER Primary Care Provider + Source Comments [facility],non-owned Affiliates and Associated Physician Practices is amultiple site organization consisting of ambulatory clinics and hospital sitesin [place], [place], [place] and [place]. This disclosure is being madepursuant to the Care Everywhere program and may not contain all information available regarding this patient. Last updated 17.[facility] Social History Tobacco Use Types Packs/Day Years Used Date Smoking Tobacco: Never Assessed Sex and Gender Information Value Date Recorded Sex Assigned at Not on file Gender Identity Not on file Sexual Orientation Not on file Plan of Treatment Health Maintenance Due Date Last Done Comments BONE DENSITY TESTING 1956 COLOGUARD (AGES 45-75) - COL ON CA SCREENING 1956 COLON MONITORING 1956 COLONOSCOPY - COLON CA SCREENING 1956 CT COLONOGRAPHY - COLON CA SCREENING 1956 Colorectal Cancer Screening 1956 FIT - COLON CA SCREENING 1956 FLEX SIG - COLON CA SCREENING 1956 LIPID TESTING 1956 MAMMOGRAM 1956 HEPATITIS C SCREENING 06/07/1974 DTAP/TDAP/TD VACCINES (1 - Tdap) 06/12/1975 PNEUMOCOCCAL VACCINE 50+ (1 of 1 - PCV) 2006 ZOSTER VACCINE (1 of 2) 2006 COVID-19 VACCINE ( - 2023-2 5 season) 2023 INFLUENZA VACCINE (#1) 2023 DEPRESSION SCREENING 04/07/2024 Respiratory Syncytial Virus (RSV) Vaccine Pt: or over 60 yrs (1 - 1-dose 75+ series) 06/12/2031 HEPATITIS B VACCINE Aged Out No longe r eligible based on patient's age to complete this topic HIB VACCINE Aged Out No longer eligi ble based on patient's age to complete this topic HPV VACCINE Aged Out No longer eligi ble based on patient's age to complete this topic MENINGOCOCCAL (Group B) VACCINE Aged Out No longer eligible based on patient's age to complete this topic MENINGOCOCCAL VACCINE Aged Out No isidro susanna eligible based on patient's age to complete this topic Care Teams Winch Operator Relationship Specialty Start Date End Date Jazmin Sahni APRN-BARROW WORKER [address] [phone] PCP - General 01/16/22
--- OUTSIDE RECORDS SUMMARY | 2024-05-17 15:22 | XMS_ITS | Encounter Summary ---
Author Organization [facility] Address [address] [place] [address] Care Team Providers Care Mushroom Sorter Grader Name Role Phone Jazmin Sahni LEAD GENERATION MARKETING MANAGER-GAS STATION ATTENDANT Primary Care Provider + Encounter Details Date Type Department Care Team (Late st Contact Info) Description 07/09/2018 Lab Requisition [facility] Care DermPath Lab [address] [facility], [place] [phone] Gene Medley MD [address] [place] [address] Social History Tobacco Use Types Packs/Day Years Used Date Smoking Tobacco: Never Assessed Sex and Gender Information Value Date Recorded Sex Assigned at Not on file Gender Identity Not on file Sexual Orientation Not on file documented as of this encounter Plan of Treatment Not on file documented as of this encounter Procedures Procedure Name Priority Date/Time Associated Diagnosis Comments DERMATOPATHOLOGY Routine 07/08/2018 12:0 0 AM CDT documented in this encounter Results * DERMATOPATHOLOGY (07/08/2018 12:00 AM CDT) Case Report Dermatopathology Report Case: [id number] Authorizing Provider: Gene Medley MD Collected: 07/08/2018 12:00 AM Pathologist: Cira Rodriguez MD Received: 07/09/2018 11:45 AM Specimen: Skin, right lower back paraspinal 9 2:42 PM CDT DERMATOPATHOLOGY LABORATORY Final Diagnosis Specimen A. 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 Previous Bx: [id number]. Check margins. 2:42 PM T DERMATOPATHOLOGY LABORATORY Gross Description Specimen A: Received is one formalin filled container labeled with the patient's name and designated right lower back paraspinal.The specimen consists of an ellipse measuring [id number] and is oriented with the notch at the 12 o'clock position labeled on the requisition as notch superior pole. The epidermal surface consists of a centrally located 6x3mm previous biopsy site. The 12 to 6 o'clock margin is inked green. The 6 o'clock to 12 o'clock margin is inked black. The 12 o'clock tip is submitted in cassette 1. The 6 o'clock tip is submitted in cassette 2. The remainder of the ellipse is serially sectioned and submitted in cassettes 3-4. Jar 0. 2:42 PM [facility] DERMATOPATHOLOGY LABORATORY Microscopic Description Specimen A. SKIN, right lower back paraspinal: Attached to the undersurface of the epidermis, there are small aggregates of basaloid cells with a high nuclear to cytoplasmic ratio and peripheral palisading. This lesion is not present at the margin of the specimen. There are fibroblasts and collagen bundles oriented parallel to the skin surface with elongated blood vessels, some of which are oriented perpendicular to the skin surface. Sections also show a relatively broad, flat proliferation of small keratinocytes. The surface is gently papillated, and there is increased basilar pigmentation. This lesion is not present at the margin of the specimen. 2:42 PM [facility] DERMATOPATHOLOGY LABORATORY Disclaimer An external and internal positive and negative controls are appropriate for the histochemical, immunohistochemical and immunofluorescence stain(s) in this case (if any), except where stated explicitly. The performance characteristics of the stain(s) cited in this report were developed and its performance characteristic determined by the Dermatopathology Laboratory at [facility], directed by Dr. Renetta Bender. These tests need not be, and therefore are not, approved by the [place] Food and Drug Administration. The tests are used for clinical purposes. Billing Codes Specimen Charges Stain Charges 78207 1 9 2:42 PM CDT DERMATOPATHOLOGY LABORATORY Embedded Images 9 2:42 PM CDT DERMATOPATHOLOGY LABORATORY Pathology/Cytolog y TISSUE SPECIMEN FROM SKIN / Unknown 07/08/2018 07/09/2018 11:45 AM CDT Gene Medley MD LAB - PATHOLOGY/CYTO LOGY ORDERABLES DERMATOPATHOLOGY LABORATORY [facility] - Department of Dermatology [address] [place] [address], 5th Floor Lab [address] [phone] documented in this encounter Visit Diagnoses Not on filedocumented in this encounter Care Teams Mushroom Sorter Grader Relationship Specialty Start Date End Date Jazmin Sahni APRN-JONATHAN [address] [phone] PCP - General 01/16/22 documented as of this encounter
--- OUTSIDE RECORDS SUMMARY | 2024-05-17 15:22 | XMS_ITS | Encounter Summary ---
Author Organization [facility] Address [address] [place] [address] Care Team Providers Care Salvage Cutter Name Role Phone Jazmin Sahni PIERCE AND SHAVE PRESS OPERATOR-MONOTYPE KEYBOARD OPERATOR Primary Care Provider + Encounter Details Date Type Department Care Team (Late st Contact Info) Description 12/27/2021 Lab Requisition [facility] DermPath Lab [address] [facility] [place] [phone] Gene Medley MD [address] [place] [address] Social History Tobacco Use Types [...] Priority Date/Time Associated Diagnosis Comments DERMATOPATHOLOGY Routine 12/26/2021 12:0 0 AM CDT documented in this encounter Results * DERMATOPATHOLOGY (12/26/2021 12:00 AM CDT) Case Report Dermatopathology Report Case: [id number] Authorizing Provider: Gene Medley MD Collected: 12/26/2021 12:00 AM Ordering Location: [facility] DermPath Lab Received: 12/27/2021 05:04 PM Pathologist: Marielle Adams MD Specimen: Skin, left lower cheek 12:59 PM CDT DERMATOPATHOLOGY LABORATORY Final Diagnosis Specimen A. SKIN, left lower cheek: POST-INFLAMMATORY PIGMENT ALTERATION (L81.9) (see microscopic description) 12:59 PM CDT DERMATOPATHOLOGY LABORATORY Clinical History R/O bruise trauma, SK, other 12:59 PM CDT DERMATOPATHOLOGY LABORATORY Gross Description Specimen A: Received is one formalin filled container labeled with the patient's name and designated left lower cheek. The specimen consists of a punch biopsy measuring 2x2x3 mm. Jar 0. 12:59 PM CDT DERMATOPATHOLOGY LABORATORY Microscopic Description Specimen A. SKIN, left lower cheek: Sections show abundant melanin within melanophages around the superficial vascular plexus. Additional deeper sections were obtained and reviewed. 12:59 PM CDT DERMATOPATHOLOGY LABORATORY Disclaimer An external and internal positive and negative controls are appropriate for the histochemical, immunohistochemical and immunofluorescence stain(s) in this case (if any), except where stated explicitly. The performance characteristics of the stain(s) cited in this report were developed and its performance characteristic determined by the Dermatopathology Laboratory at [facility], directed by Dr. Renetta Bender. These tests need not be, and therefore are not, approved by the [place] Food and Drug Administration. The tests are used for clinical purposes. Billing Codes Specimen Charges Stain Charges 40450 1 12:59 PM CDT DERMATOPATHOLOGY LABORATORY Embedded Images 12:59 PM CDT DERMATOPATHOLOGY LABORATORY Pathology/Cytolog y TISSUE SPECIMEN FROM SKIN / Unknown 12/26/2021 12/27/2021 5:04 PM CDT Gene Medley MD LAB - PATHOLOGY/CYTO LOGY ORDERABLES DERMATOPATHOLOGY LABORATORY [facility] - Department of Dermatology [facility] Medicine [address] [place] [address], [address] [place] [address], [facility] [phone] documented in this encounter Visit Diagnoses Not on filedocumented in this encounter Care Teams Salvage Cutter Relationship Specialty Start Date End Date Jazmin Sahni APRN-JONATHAN [address] [phone] PCP - General 01/16/22 documented as of this encounter
--- OUTSIDE RECORDS SUMMARY | 2024-05-17 15:22 | XMS_ITS | Referral Summary ---
Author Organization [facility] Address [address] [place] [phone] Care Team Providers Care Cylinder Worker Name Role Phone Jazmin Sahni NP Primary Care Provider Allergies Active Allergy Reactions Criticality Noted Date Comments Penicillins Hives Medium 01/03/2012 Medications aspirin 81 mg tablet Take 81 mg by mouth daily. Active Active Problems Problem Noted Date Diagnosed Date Other chest pain 03/04/2017 Assessment & Plan (03/05/2017 7:01 PM APPIAN DEVELOPER): Minimal risk factors for coronary artery disease, but the occasional exertional component of her chest discomfort is worrisome. This could represent walk through angina. I have recommended a stress echocardiogram for evaluation. Further recommendations pending results of stress echocardiogram. Social History Tobacco Use Types Packs/Day Years Used Date Smoking Tobacco: Never Smokeless Tobacco: Never Alcohol Use Standard Drinks/Week Comments Yes 0 (1 standard drink = 0.6 oz pur e alcohol) Comments Unknown Sex and Gender Information Value Date Recorded Sex Assigned at Not on file Legal Sex Female 12:45 AM APPIAN DEVELOPER Gender Identity Not on file Sexual Orientation Not on file Last Filed Vital Signs Vital Sign Reading Time Taken Comments Blood Pressure 112/62 03/04/2017 11:27 AM APPIAN DEVELOPER Pulse 72 03/04/2017 11:27 AM APPIAN DEVELOPER Temperature - - Respiratory Rate - - Oxygen Saturation - - Inhaled Oxygen Concentration - - Weight 63 kg (139 lb) 03/04/2017 11:27 AM APPIAN DEVELOPER Height 160 cm (5' 3 ) 03/04/2017 11:27 AM APPIAN DEVELOPER Body Mass Index 24.62 03/04/2017 11:27 AM APPIAN DEVELOPER Plan of Treatment Not on file Care Teams Cylinder Worker Relationship Specialty Start Date End Date Jazmin Sahni NP PCP - General Nurse Practitioner 02/05/17
--- OUTSIDE RECORDS SUMMARY | 2024-05-17 15:22 | XMS_ITS | Encounter Summary ---
Author Organization [facility] Address [address] [place] [address] Care Team Providers Care Finished Goods Planner Name Role Phone Jazmin Sahni COGNOS-FRENCH DRAWER Primary Care Provider + Encounter Details Date Type Department Care Team (Late st Contact Info) Description 05/28/2018 Lab Requisition [facility] Care DermPath Lab [address] [facility] [place] [address] [place] [address] Social History Tobacco Use Types [...] Priority Date/Time Associated Diagnosis Comments DERMATOPATHOLOGY Routine 05/27/2018 12:0 0 AM ENROLLMENT MANAGER documented in this encounter Results * DERMATOPATHOLOGY (05/27/2018 12:00 AM ENROLLMENT MANAGER) Case Report Dermatopathology Report Case: [id number] Authorizing Provider: Gene Medley MD Collected: 05/27/2018 12:00 AM Pathologist: Cira Rodriguez MD Received: 05/28/2018 12:01 PM Specimen: Skin, right paralumbar back 9 3:47 PM ENROLLMENT MANAGER DERMATOPATHOLOGY LABORATORY Final Diagnosis Specimen A. SKIN, right paralumbar back: BASAL CELL CARCINOMA, SUPERFICIAL MULTIFOCAL (C44.519) 9 3:47 PM ENROLLMENT MANAGER DERMATOPATHOLOGY LABORATORY Clinical History R/O BCC. 9 3:47 PM ENROLLMENT MANAGER DERMATOPATHOLOGY LABORATORY Gross Description Specimen A: Received is one formalin filled container labeled with the patient's name and designated right paralumbar back. The specimen consists of a shave biopsy measuring 6l8h3io. Jar 0. 9 3:47 PM ENROLLMENT MANAGER DERMATOPATHOLOGY LABORATORY Microscopic Description Specimen A. SKIN, right paralumbar back: Attached to the undersurface of the epidermis, there are small aggregates of basaloid cells with a high nuclear to cytoplasmic ratio and peripheral palisading. 9 3:47 PM ENROLLMENT MANAGER DERMATOPATHOLOGY LABORATORY Disclaimer An external and internal positive and negative controls are appropriate for the histochemical, immunohistochemical and immunofluorescence stain(s) in this case (if any), except where stated explicitly. The performance characteristics of the stain(s) cited in this report were developed and its performance characteristic determined by the Dermatopathology Laboratory at [facility], directed by Dr. Renetta Bender. These tests need not be, and therefore are not, approved by the [place] Food and Drug Administration. The tests are used for clinical purposes. Billing Codes Specimen Charges Stain Charges 94679 1 9 3:47 PM ENROLLMENT MANAGER DERMATOPATHOLOGY LABORATORY Embedded Images 9 3:47 PM ENROLLMENT MANAGER DERMATOPATHOLOGY LABORATORY Pathology/Cytolog y TISSUE SPECIMEN FROM SKIN / Unknown 05/27/2018 05/28/2018 12:01 PM ENROLLMENT MANAGER Gene Medley MD LAB - PATHOLOGY/CYTO LOGY ORDERABLES DERMATOPATHOLOGY LABORATORY [facility] - Department of Dermatology [address] [place] [address], 5th [place] [address], [facility] [phone] documented in this encounter Visit Diagnoses Not on filedocumented in this encounter Care Teams Finished Goods Planner Relationship Specialty Start Date End Date Jazmin Sahni APRN-FRENCH DRAWER [address] [phone] PCP - General 01/16/22 documented as of this encounter
--- OUTSIDE RECORDS SUMMARY | 2024-05-17 15:22 | XMS_ITS | Referral Summary ---
Author Organization [facility] Address [address] [place] [address] Care Team Providers Care Concrete Hopper Operator Name Role Phone Daniel Sahniie ROMAN Primary Care Provider + Source Comments [facility] Affiliates and Associated Physician Practices is amultiple site organization consisting of ambulatory clinics and hospital sitesin [place], [place] and [place]. This disclosure is being madepursuant to the Care Everywhere program and may not contain all information available regarding this patient. Last updated 17.[facility] [employer] Social History Tobacco Use Types Packs/Day Years Used Date Smoking Tobacco: Never Assessed Sex and Gender Information Value Date Recorded Sex Assigned at Not on file Gender Identity Not on file Sexual Orientation Not on file Plan of Treatment Not on file Care Teams Concrete Hopper Operator Relationship Specialty Start Date End Date Jazmin Sahni APRN-CNP [address] [facility] [address] [place] [phone] PCP - General 01/16/22
--- OUTSIDE RECORDS SUMMARY | 2024-05-17 15:22 | XMS_ITS | Patient Health Summary ---
Author Organization [facility] Address [address] [facility] [place] [address] Care Team Providers Care Structural Fitter Name Role Phone Jazmin Sahni APRN-PROJECT MANAGEMENT ENGINEER Primary Care Provider + Note from [facility],non-owned Affiliates and Associated Physician Practices is amultiple site organization consisting of ambulatory clinics and hospital sitesin [place], [place], [place] and [place]. This disclosure is being madepursuant to the Care Everywhere program and may not contain all information available regarding this patient. Last updated 17.[facility] Social History Tobacco Use Types Packs/Day Years Used Date Smoking Tobacco: Never Assessed Sex and Gender Information Value Date Recorded Sex Assigned at Not on file Gender Identity Not on file Sexual Orientation Not on file Procedures * DERMATOPATHOLOGY(Performed 12/26/2021) * DERMATOPATHOLOGY(Performed 07/08/2018) * DERMATOPATHOLOGY(Performed 06/04/2018) * DERMATOPATHOLOGY(Performed 05/27/2018) * DERMATOPATHOLOGY(Performed 10/19/2014) Results * DERMATOPATHOLOGY (12/26/2021 12:00 AM CDT) Only the most recent of5 resultswithin the time period is included. Case Report Dermatopathology Report Case: [id number] Authorizing Provider: Gene Medley MD Collected: 12/26/2021 12:00 AM Ordering Location: [facility] DermPath Lab Received: 12/27/2021 05:04 PM Pathologist: Marielle Adams MD Specimen: Skin, left lower cheek 12:59 PM CDT DERMATOPATHOLOGY LABORATORY Final Diagnosis Specimen A. SKIN, left lower cheek: POST-INFLAMMATORY PIGMENT ALTERATION (L81.9) (see microscopic description) 2 12:59 PM CDT DERMATOPATHOLOGY LABORATORY Clinical History [...] characteristic determined by the Dermatopathology Laboratory at [facility], directed by Dr. Renetta Bender. These tests need not be, and therefore are not, approved by the [place] Food and Drug Administration. The tests are used for clinical purposes. Billing Codes Specimen Charges Stain Charges 37488 1 2 12:59 PM CDT DERMATOPATHOLOGY LABORATORY Embedded Images 12:59 PM CDT DERMATOPATHOLOGY LABORATORY Pathology/Cytolog y TISSUE SPECIMEN FROM SKIN / Unknown 12/26/2021 12/27/2021 5:04 PM CDT Gene Medley MD LAB - PATHOLOGY/CYTO LOGY ORDERABLES DERMATOPATHOLOGY LABORATORY [facility] - Department of Dermatology [facility] [address] [place] [address], [address] [phone] Care Teams Structural Fitter Relationship Specialty Start Date End Date Jazmin Sahni APRN-PROJECT MANAGEMENT ENGINEER [address] [phone] (work) PCP - General 01/16/22
--- OUTSIDE RECORDS SUMMARY | 2024-05-17 15:22 | XMS_ITS | Encounter Summary ---
Author Organization [facility] Address [address] [place] [address] Care Team Providers Care Optimization Specialist Name Role Phone Jazmin Sahni VEHICLE MODIFICATION TECHNICIAN-COAL CRUSHER OPERATOR Primary Care Provider + Encounter Details Date Type Department Care Team (Late st Contact Info) Description 06/05/2018 Lab Requisition [facility] Care DermPath Lab [address] [facility], [place] [phone] Gene Medley [place] [address] Social History Tobacco Use Types [...] Priority Date/Time Associated Diagnosis Comments DERMATOPATHOLOGY Routine 06/04/2018 12:0 0 AM SUPERVISOR COOLER SERVICE documented in this encounter Results * DERMATOPATHOLOGY (06/04/2018 12:00 AM SUPERVISOR COOLER SERVICE) Case Report Dermatopathology Report Case: [id number] Authorizing Provider: Gene Medley MD Collected: 06/04/2018 12:00 AM Pathologist: Cira Rodriguez MD Received: 06/05/2018 01:20 PM Specimens: A) - Skin, right frontal scalp behind hairline B) - Skin, left side of nose C) - Skin, right side of chin 10:16 AM SUPERVISOR COOLER SERVICE DERMATOPATHOLOGY LABORATORY Final Diagnosis Specimen A. SKIN, right frontal scalp behind hairline: ACTINIC KERATOSIS, ERODED (L57.0) Specimen B. SKIN, left side of nose: ACTINIC KERATOSIS, ERODED (L57.0) Specimen C. SKIN, right side of chin: ACTINIC KERATOSIS, ERODED (L57.0) 10:16 AM [facility] DERMATOPATHOLOGY LABORATORY Clinical History A: R/O ISK, SCC, BCC, HAK. B: R/O SCC, BCC, excoriation, AK. C: R/O SCC, BCC, AK, excoriation 10:16 AM [facility] DERMATOPATHOLOGY LABORATORY Gross Description Specimen A: Received is one formalin filled container labeled with the patient's name and designated right frontal scalp behind hairline. The specimen consists of a shave biopsy measuring [id number]. Jar 0. Specimen B: Received is one formalin filled container labeled with the patient's name and designated left side of nose. The specimen consists of a shave biopsy measuring [id number]. Jar 0. Specimen C: Received is one formalin filled container labeled with the patient's name and designated right side of chin. The specimen consists of a shave biopsy measuring 6p3v7ej. Jar 0. 10:16 AM [facility] DERMATOPATHOLOGY LABORATORY Microscopic Description Specimen A. SKIN, right frontal scalp behind hairline: There is alternating orthokeratosis and parakeratosis. The epidermis is focally eroded. Along the undersurface of the epidermis, there are buds of atypical keratinocytes in a disorderly arrangement. Specimen B. SKIN, left side of nose: There is alternating orthokeratosis and parakeratosis. The epidermis is focally eroded. Along the undersurface of the epidermis, there are buds of atypical keratinocytes in a disorderly arrangement. Specimen C. SKIN, right side of chin: There is alternating orthokeratosis and parakeratosis. The epidermis is focally eroded. Along the undersurface of the epidermis, there are buds of atypical keratinocytes in a disorderly arrangement. 10:16 AM [facility] DERMATOPATHOLOGY LABORATORY Disclaimer An external and internal positive and negative controls are appropriate for the histochemical, immunohistochemical and immunofluorescence stain(s) in this case (if any), except where stated explicitly. The performance characteristics of the stain(s) cited in this report were developed and its performance characteristic determined by the Dermatopathology Laboratory at [facility], directed by Dr. Renetta Bender. These tests need not be, and therefore are not, approved by the [place] Food and Drug Administration. The tests are used for clinical purposes. Billing Codes Specimen Charges Stain Charges 23782 56789 02588 1 1 1 9 10:16 AM SUPERVISOR COOLER SERVICE DERMATOPATHOLOGY LABORATORY Embedded Images 9 10:16 AM SUPERVISOR COOLER SERVICE DERMATOPATHOLOGY LABORATORY Pathology/Cytology TISSUE SPECIMEN FROM SKIN / Unknown 06/04/2018 06/05/2018 1:20 PM SUPERVISOR COOLER SERVICE Miscellaneous samples (specimen) TISSUE SPECIMEN FROM SKIN / Unknown 06/04/2018 06/05/2018 1:20 PM SUPERVISOR COOLER SERVICE Miscellaneous samples (specimen) TISSUE SPECIMEN FROM SKIN / Unknown 06/04/2018 06/05/2018 1:20 PM SUPERVISOR COOLER SERVICE Gene Medley MD LAB - PATHOLOGY/CYTO LOGY ORDERABLES Performing Organization Address City/State/[facility] Co de Phone Number DERMATOPATHOLOGY LABORATORY [facility] - Department of Dermatology [address] [place] [address], 5th Floor Lab [address] [phone] documented in this encounter Visit Diagnoses Not on filedocumented in this encounter Care Teams Optimization Specialist Relationship Specialty Start Date End Date Jazmin Sahni APRN-JONATHAN [address] [address] PCP - General 01/16/22 documented as of this encounter
== END 2024-05-17 15:12 | disposition home or self-care (01) ==
LOC: ANHIMG 15:14
PROVIDERS: PCP Family Medicine; Visit Provider Nurse Practitioner
DX: Z12.31 Encounter for screening mammogram for malignant neoplasm of breast (principal)
CPT/HCPCS: 77063; 77067

== ENCOUNTER 2024-07-07 15:05 | Outpatient (CLI) | payer MEDICARE, SELFPAY ==
--- NOTE | ~2024-07-07 | CT_ITS ---
CT Scan of the Chest without Contrast: Clinical Indication: Cough Technique: Contiguous sections were acquired throughout the chest without intravenous contrast. Dose reduction technique was used on this scan by utilizing automated exposure control and iterative recon struction technique. The dose-length product (DLP) was 147.49 mGy-cm. Findings: There is no evidence of any significant mediastinal, hilar or axillary lymphadenopathy. The mediastin al soft tissues appear normal. There is no evidence of pleural or pericardial effusion. The lungs are clear. No pulmonary nodules or infiltrates are noted. Images through the upper abdomen reveal no abnormalities. Impression: No significant abnormalities seen. Reviewed, dictated and finalized at location . Impression: No significant abnormalities seen.
--- OUTSIDE RECORDS SUMMARY | 2024-07-07 16:27 | XMS_ITS | Clinical Summary ---
Author Organization [facility] D Address [address] [place] [id number] Care Team Providers Care Specialist Physicians Name Role Phone Jazmin Sahni NP Primary Care Provider [phone] Allergies Active Allergy Reactions Criticality Noted Date Comments Penicillins Hives Medium 01/03/2012 Medications aspirin 81 mg tablet Take 81 mg by mouth daily. Active Active Problems Problem Noted Date Diagnosed Date Other chest pain 03/04/2017 Assessment & Plan (03/05/2017 7:01 PM FINISHER HOT STRIP): Minimal risk factors for coronary artery disease, [...] on file Legal Sex Female 12:45 AM FINISHER HOT STRIP Gender Identity Not on file Sexual Orientation Not on file Obstetrics History Last Filed Vital Signs Vital Sign Reading Time Taken Comments Blood Pressure 112/62 03/04/2017 11:27 AM FINISHER HOT STRIP Pulse 72 03/04/2017 11:27 AM FINISHER HOT STRIP Temperature - - Respiratory Rate - - Oxygen Saturation - - Inhaled Oxygen Concentration - - Weight 63 kg (139 lb) 03/04/2017 11:27 AM FINISHER HOT STRIP Height 160 cm (5' 3 ) 03/04/2017 11:27 AM FINISHER HOT STRIP Body Mass Index 24.62 03/04/2017 11:27 AM FINISHER HOT STRIP Plan of Treatment Not on file Care Teams Specialist Physicians Relationship Specialty Start Date End Date Jazmin Sahni NP PCP - General Nurse Practitioner 02/05/17
--- OUTSIDE RECORDS SUMMARY | 2024-07-07 16:27 | XMS_ITS | Encounter Summary ---
Author Organization [facility] Address [address] [facility] [place] [address] Care Team Providers Care Outsole Tacker Name Role Phone Jazmin Sahni CNC OPERATOR MACHINIST-ELECTRICIAN DECK Primary Care Provider + Encounter Details Date Type Department Care Team (Late st Contact Info) Description 05/28/2018 Lab Requisition [facility] Care DermPath Lab [address] [facility], [place] [address] [place] [address] Social History Tobacco Use Types [...] Comments DERMATOPATHOLOGY Routine 05/27/2018 12:0 0 AM LEAF BLENDER documented in this encounter Results * DERMATOPATHOLOGY (05/27/2018 12:00 AM LEAF BLENDER) Case Report Dermatopathology Report Case: [id number] Authorizing Provider: Gene Medley MD Collected: 05/27/2018 12:00 AM Pathologist: Cira Rodriguez MD Received: 05/28/2018 12:01 PM Specimen: Skin, right paralumbar back 9 3:47 PM LEAF BLENDER DERMATOPATHOLOGY LABORATORY Final Diagnosis Specimen A. SKIN, right paralumbar back: BASAL CELL CARCINOMA, SUPERFICIAL MULTIFOCAL (C44.519) 9 3:47 PM LEAF BLENDER DERMATOPATHOLOGY LABORATORY Clinical History R/O BCC. 9 3:47 PM LEAF BLENDER DERMATOPATHOLOGY LABORATORY Gross Description Specimen A: Received is one formalin filled container labeled with the patient's name and designated right paralumbar back. The specimen consists of a shave biopsy measuring [id number]. Jar 0. 9 3:47 PM LEAF BLENDER DERMATOPATHOLOGY LABORATORY Microscopic Description Specimen A. SKIN, right paralumbar back: Attached to the undersurface of the epidermis, there are small aggregates of basaloid cells with a high nuclear to cytoplasmic ratio and peripheral palisading. 9 3:47 PM LEAF BLENDER DERMATOPATHOLOGY LABORATORY Disclaimer An external and internal positive and negative controls are appropriate for the histochemical, immunohistochemical and immunofluorescence stain(s) in this case (if any), except where stated explicitly. The performance characteristics of the stain(s) cited in this report were developed and its performance characteristic determined by the Dermatopathology Laboratory at [facility], directed by Dr. Renetta Bender. These tests need not be, and therefore are not, approved by the [place] Food and Drug Administration. The tests are used for clinical purposes. Billing Codes Specimen Charges Stain Charges 73015 1 9 3:47 PM LEAF BLENDER DERMATOPATHOLOGY LABORATORY Embedded Images 9 3:47 PM LEAF BLENDER DERMATOPATHOLOGY LABORATORY Pathology/Cytolog y TISSUE SPECIMEN FROM SKIN / Unknown 05/27/2018 05/28/2018 12:01 PM LEAF BLENDER Gene Medley MD LAB - PATHOLOGY/CYTO LOGY ORDERABLES DERMATOPATHOLOGY LABORATORY [facility] - Department of Dermatology [address] [place] [address], 5th [place] [address], [facility] [phone] documented in this encounter Visit Diagnoses Not on filedocumented in this encounter Care Teams Outsole Tacker Relationship Specialty Start Date End Date Jazmin Sahni APRN-ELECTRICIAN DECK [address] [address] PCP - General 01/16/22 documented as of this encounter
--- OUTSIDE RECORDS SUMMARY | 2024-07-07 16:27 | XMS_ITS | Encounter Summary ---
Author Organization [facility] Address [address] [facility] [place] [address] Care Team Providers Care Balloon Design Printer Name Role Phone Jazmin Sahni ENAMEL SHADER-SEAL MIXING OPERATOR Primary Care Provider + Encounter Details Date Type Department Care Team (Late st Contact Info) Description 06/05/[address] [facility] Care DermPath Lab [address] [facility], [place] [phone] [place] [address] Social History Tobacco Use Types [...] Comments DERMATOPATHOLOGY Routine 06/04/2018 12:0 0 AM ENTRY LEVEL TRUCK DRIVER documented in this encounter Results * DERMATOPATHOLOGY (06/04/2018 12:00 AM ENTRY LEVEL TRUCK DRIVER) Case Report Dermatopathology Report Case: [id number] Authorizing Provider: Gene Medley MD Collected: 06/04/2018 12:00 AM Pathologist: Cira Rodriguez MD Received: 06/05/2018 01:20 PM Specimens: A) - Skin, right frontal scalp behind hairline B) - Skin, left side of nose C) - Skin, right side of chin 10:16 AM ENTRY LEVEL TRUCK DRIVER DERMATOPATHOLOGY LABORATORY Final Diagnosis Specimen A. SKIN, right frontal scalp behind hairline: ACTINIC KERATOSIS, ERODED (L57.0) Specimen B. SKIN, left side of nose: ACTINIC KERATOSIS, ERODED (L57.0) Specimen C. SKIN, right side of chin: ACTINIC KERATOSIS, ERODED (L57.0) 10:16 AM [facility] DERMATOPATHOLOGY LABORATORY Clinical History A: R/O ISK, SCC, BCC, HAK. B: R/O SCC, BCC, excoriation, AK. C: R/O SCC, BCC, AK, excoriation 10:16 AM [facility] DERMATOPATHOLOGY LABORATORY Gross Description Specimen A: Received is one formalin filled container labeled with the patient's name and designated right frontal scalp behind hairline. The specimen consists of a shave biopsy measuring 4s2g5tu. Jar 0. Specimen B: Received is one formalin filled container labeled with the patient's name and designated left side of nose. The specimen consists of a shave biopsy measuring 6f3v8pa. Jar 0. Specimen C: Received is one formalin filled container labeled with the patient's name and designated right side of chin. The specimen consists of a shave biopsy measuring [id number]. Jar 0. 10:16 AM [facility] DERMATOPATHOLOGY LABORATORY Microscopic Description Specimen A. SKIN, [...] keratinocytes in a disorderly arrangement. 10:16 AM [facility] DERMATOPATHOLOGY LABORATORY Disclaimer An external and internal positive and negative controls are appropriate for the histochemical, immunohistochemical and immunofluorescence stain(s) in this case (if any), except where stated explicitly. The performance characteristics of the stain(s) cited in this report were developed and its performance characteristic determined by the Dermatopathology Laboratory at [facility], directed by Dr. Renetta Bender. These tests need not be, and therefore are not, approved by the [place] Food and Drug Administration. The tests are used for clinical purposes. Billing Codes Specimen Charges Stain Charges 64198 05076 25856 1 1 1 9 10:16 AM ENTRY LEVEL TRUCK DRIVER DERMATOPATHOLOGY LABORATORY Embedded Images 9 10:16 AM ENTRY LEVEL TRUCK DRIVER DERMATOPATHOLOGY LABORATORY Pathology/Cytology TISSUE SPECIMEN FROM SKIN / Unknown 06/04/2018 06/05/2018 1:20 PM ENTRY LEVEL TRUCK DRIVER Miscellaneous samples (specimen) TISSUE SPECIMEN FROM SKIN / Unknown 06/04/2018 06/05/2018 1:20 PM ENTRY LEVEL TRUCK DRIVER Miscellaneous samples (specimen) TISSUE SPECIMEN FROM SKIN / Unknown 06/04/2018 06/05/2018 1:20 PM ENTRY LEVEL TRUCK DRIVER Gene Medley MD LAB - PATHOLOGY/CYTO LOGY ORDERABLES Performing Organization Address City/State/[facility] Co de Phone Number DERMATOPATHOLOGY LABORATORY [facility] - Department of Dermatology [address] [place] [address], 5th Floor Lab [address] [phone] documented in this encounter Visit Diagnoses Not on filedocumented in this encounter Care Teams Balloon Design Printer Relationship Specialty Start Date End Date Jazmin Sahni APRN-JONATHAN [address] [phone] PCP - General 01/16/22 documented as of this encounter
--- OUTSIDE RECORDS SUMMARY | 2024-07-07 16:27 | XMS_ITS | Encounter Summary ---
Author Organization [facility] Address [address] [place] [address] Care Team Providers Care Supervisor Filter Assembly Name Role Phone Jazmin Sahni TRANSIT BUS OPERATOR-COMBUSTION ENGINEER Primary Care Provider + Encounter Details Date Type Department Care Team (Late st Contact Info) Description 07/09/2018 Lab Requisition [facility] Care DermPath Lab [address] [facility], [place] [phone] Gene Medley MD [address] [place] [address] Social History Tobacco Use Types [...] AM CDT) Case Report Dermatopathology Report Case: [id number] Authorizing Provider: Gene Medley MD Collected: 07/08/2018 12:00 AM Pathologist: Cira Rodriguez MD Received: 07/09/2018 11:45 AM Specimen: Skin, right lower back paraspinal 9 2:42 PM CDT DERMATOPATHOLOGY LABORATORY Final Diagnosis Specimen A. SKIN, right lower back paraspinal: BASAL CELL CARCINOMA; NOT PRESENT AT MARGIN (C44.519) DERMAL SCAR (L90.5) SEBORRHEIC KERATOSIS, MACULAR; NOT PRESENT AT MARGIN (L82.1) 2:42 PM [facility] DERMATOPATHOLOGY LABORATORY Clinical History Bx proven R/O BCC, superficial multifocal. Previous Bx: [id number]. Check margins. 2:42 PM T DERMATOPATHOLOGY LABORATORY Gross Description Specimen A: Received is one formalin filled container labeled with the patient's name and designated right lower back paraspinal.The specimen consists of an ellipse measuring 29a10o1ms and is oriented with the notch at [...] in cassettes 3-4. Jar 0. 2:42 PM [facility] DERMATOPATHOLOGY LABORATORY Microscopic Description Specimen A. [...] the margin of the specimen. 2:42 PM [facility] DERMATOPATHOLOGY LABORATORY Disclaimer An external and internal positive and negative controls are appropriate for the histochemical, immunohistochemical and immunofluorescence stain(s) in this case (if any), except where stated explicitly. The performance characteristics of the stain(s) cited in this report were developed and its performance characteristic determined by the Dermatopathology Laboratory at [facility], directed by Dr. Renetta Bender. These tests need not be, and therefore are not, approved by the [place] Food and Drug Administration. The tests are used for clinical purposes. Billing Codes Specimen Charges Stain Charges 54849 1 9 2:42 PM CDT DERMATOPATHOLOGY LABORATORY Embedded Images 9 2:42 PM CDT DERMATOPATHOLOGY LABORATORY Pathology/Cytolog y TISSUE SPECIMEN FROM SKIN / Unknown 07/08/2018 07/09/2018 11:45 AM CDT Gene Medley MD LAB - PATHOLOGY/CYTO LOGY ORDERABLES DERMATOPATHOLOGY LABORATORY [facility] - Department of Dermatology [address] [place] [address], 5th Floor Lab [address] [phone] documented in this encounter Visit Diagnoses Not on filedocumented in this encounter Care Teams Supervisor Filter Assembly Relationship Specialty Start Date End Date Jazmin Sahni APRN-JONATHAN [address] [address] PCP - General 01/16/22 documented as of this encounter
--- OUTSIDE RECORDS SUMMARY | 2024-07-07 16:27 | XMS_ITS | Referral Summary ---
Author Organization [facility] Address [address] [place] [id number] Care Team Providers Care Certified Retinal Angiographer Name Role Phone Jazmin Sahni NP Primary Care Provider [phone] Allergies Active Allergy Reactions Criticality Noted Date Comments Penicillins Hives Medium 01/03/2012 Medications aspirin 81 mg tablet Take 81 mg by mouth daily. Active Active Problems Problem Noted Date Diagnosed Date Other chest pain 03/04/2017 Assessment & Plan (03/05/2017 7:01 PM EDUCATION DEPARTMENT REGISTRAR): Minimal risk factors for coronary artery disease, [...] on file Legal Sex Female 12:45 AM EDUCATION DEPARTMENT REGISTRAR Gender Identity Not on file Sexual Orientation Not on file Last Filed Vital Signs Vital Sign Reading Time Taken Comments Blood Pressure 112/62 03/04/2017 11:27 AM EDUCATION DEPARTMENT REGISTRAR Pulse 72 03/04/2017 11:27 AM EDUCATION DEPARTMENT REGISTRAR Temperature - - Respiratory Rate - - Oxygen Saturation - - Inhaled Oxygen Concentration - - Weight 63 kg (139 lb) 03/04/2017 11:27 AM EDUCATION DEPARTMENT REGISTRAR Height 160 cm (5' 3 ) 03/04/2017 11:27 AM EDUCATION DEPARTMENT REGISTRAR Body Mass Index 24.62 03/04/2017 11:27 AM EDUCATION DEPARTMENT REGISTRAR Plan of Treatment Not on file Care Teams Certified Retinal Angiographer Relationship Specialty Start Date End Date Jazmin Sahni NP PCP - General Nurse Practitioner 02/05/17
--- OUTSIDE RECORDS SUMMARY | 2024-07-07 16:27 | XMS_ITS | Encounter Summary ---
Author Organization [facility] Address [address] [facility] [place] [address] Care Team Providers Care Director Statistical Programming Name Role Phone Jazmin Sahni DISABILITY EXAMINER-MEDICINE TECH Primary Care Provider + Encounter Details Date Type Department Care Team (Late st Contact Info) Description 12/27/2021 Lab Requisition [facility] DermPath Lab [address] [facility] [place] [phone] Gene Medley MD [address] [place] [address] Social History Tobacco Use Types [...] AM CDT) Case Report Dermatopathology Report Case: [id number] Authorizing Provider: Gene Medley MD Collected: 12/26/2021 12:00 AM Ordering Location: [facility] DermPath Lab Received: 12/27/2021 05:04 [...] characteristic determined by the Dermatopathology Laboratory at [facility], directed by Dr. Renetta Bender. These tests need not be, and therefore are not, approved by the [place] Food and Drug Administration. The tests are used for clinical purposes. Billing Codes Specimen Charges Stain Charges 54131 1 12:59 PM CDT DERMATOPATHOLOGY LABORATORY Embedded Images 12:59 PM CDT DERMATOPATHOLOGY LABORATORY Pathology/Cytolog y TISSUE SPECIMEN FROM SKIN / Unknown 12/26/2021 12/27/2021 5:04 PM CDT Gene Medley MD LAB - PATHOLOGY/CYTO LOGY ORDERABLES DERMATOPATHOLOGY LABORATORY [facility] - Department of Dermatology [facility] [address] [place] [address], [address]rd [place] [address], [facility] [phone] documented in this encounter Visit Diagnoses Not on filedocumented in this encounter Care Teams Director Statistical Programming Relationship Specialty Start Date End Date Jazmin Sahni APRN-JONATHAN [address] [phone] PCP - General 01/16/22 documented as of this encounter
--- OUTSIDE RECORDS SUMMARY | 2024-07-07 16:27 | XMS_ITS | Clinical Summary ---
Author Organization [facility] [employer] Address [address] [place] [address] Care Team Providers Care Therapeutic Consultant Name Role Phone Jazmin Sahni HAKAN-BENCH MANAGER Primary Care Provider + Source Comments [facility],non-owned Affiliates and Associated Physician Practices is amultiple site organization consisting of ambulatory clinics and hospital sitesin [place], [place], [place] and [place]. This disclosure is being madepursuant to the Care Everywhere program and may not contain all information available regarding this patient. Last updated 17.[facility] [employer] Social History Tobacco Use Types Packs/Day Years [...] to complete this topic MENINGOCOCCAL (Group B) VACC INE SHARED DECISION-MAKING Aged Out No longer eligibl e based on patient's age to complete this topic MENINGOCOCCAL GROUPS A/C/Y/W VACCINE Aged Out No longer eligible b ased on patient's age to complete this topic Care Teams Therapeutic Consultant Relationship Specialty Start Date End Date Jazmin Sahni APRN-JONATHAN [address] [phone] PCP - General 01/16/22
== END 2024-07-07 15:06 | disposition home or self-care (01) ==
PROVIDERS: PCP Family Medicine; Visit Provider Family Medicine
DX: R05.9 Cough, unspecified (principal)
CPT/HCPCS: 71250